=== PATIENT | female | born 1970 | race Two or more races ===

== ENCOUNTER 2020-01-07 10:50 | Outpatient (REF) | payer OTHER, SELFPAY ==
[2020-01-07 11:53] LABS: Hematocrit 37.9 % (37-47); Hemoglobin 11.6 g/dl (12.0-16.0); Mean Corpuscular HGB Conc 30.6 g/dl (31.0-35.0); Mean Corpuscular Hemoglobin 23.7 pg (27.0-33.0); Mean Corpuscular Volume 77.3 fL (80-98); Mean Platelet Volume 11.3 fL (9.4-12.3); Platelet Count 234 X10*3/uL (160-400); Red Cell Distribution Width 16.1 % (11.0-16.0); White Blood Count 6.1 X10*3/uL (4.8-10.8)
[2020-01-07 12:39] LABS: Thyroid Stimulating Hormone 0.51 mIU/mL (0.32-4.0)
== END 2020-01-07 10:51 | disposition home or self-care (01) ==
LOC: HO.LAB 10:50
PROVIDERS: PCP Nurse Practitioner Family; Visit Provider Obstetrics & Gynecology
DX: N92.0 Excessive and frequent menstruation with regular cycle (principal)
CPT/HCPCS: 36415; 84443; 85027

== ENCOUNTER 2020-02-25 17:08 | Outpatient (REF) | payer OTHER, SELFPAY | END 2020-02-25 17:09 | disposition home or self-care (01) | LOC: HO.LAB 17:08 | PROVIDERS: Visit Provider Internal Medicine | DX: Z20.828 Contact with and (suspected) exposure to other viral communicable diseases (principal) | CPT/HCPCS: C9803; U0003 ==

== ENCOUNTER → 2020-03-10 09:37 | Outpatient (BNVA) | payer OTHER, SELFPAY | PROVIDERS: PCP Nurse Practitioner Family; Visit Provider Advanced Practice Midwife | DX: N92.6 Irregular menstruation, unspecified (principal); F17.210 Nicotine dependence, cigarettes, uncomplicated; Z30.09 Encounter for other general counseling and advice on contraception | CPT/HCPCS: 81003; 81025 ==

== ENCOUNTER 2020-05-25 13:44 | Outpatient (REF) | payer OTHER, SELFPAY ==
--- NOTE | ~2020-05-25 | MM_ITS ---
EXAMINATION: MM SCREENING DIGITAL BREAST TOMOSYNTHESIS, BILATERAL CLINICAL INFORMATION: Screening. Asymptomatic. The lifetime risk of breast cancer based on the Tyrer-Cuzick Model is 11.8%. COMPARISON: Mammography: May 20, 2019 and studies dating back to May 13, 2013 TECHNIQUE: Digital breast tomosynthesis is performed in both the craniocaudal and mediolateral oblique views along with computer-aided detection (CAD). Synthesized 2D images are generated from the tomosynthesis. FINDINGS: There are scattered areas of fibroglandular density (ACR BI-RADS breast composition Category b). There are no significant masses, abnormal calcifications, or other abnormalities. MM/MM tomosynthesis screening BI IMPRESSION: There are no significant changes from prior study. ASSESSMENT: BI-RADS 1: Negative RECOMMENDATION: Routine annual mammography screening. This patient's information was entered into a reminder system with a target due date for their next mammogram.
== END 2020-05-25 13:45 | disposition home or self-care (01) ==
LOC: HO.MAMMO 13:44
PROVIDERS: Absent Provider Nurse Practitioner Family; Visit Provider Nurse Practitioner Family
DX: Z12.31 Encounter for screening mammogram for malignant neoplasm of breast (principal)
CPT/HCPCS: 77063; 77067

== ENCOUNTER 2021-11-08 14:48 | Outpatient (REF) | payer SELFPAY ==
--- NOTE | ~2021-11-08 | US_ITS ---
EXAMINATION: US PELVIS CLINICAL INFORMATION: Abnormal bleeding COMPARISON: Previous pelvic ultrasounds most recent November 2019 TECHNIQUE: Ultrasound of the pelvis is performed using both transabdominal and transvaginal transducers along with Doppler. Transvaginal imaging is performed due to inadequate visualization transabdominally. FINDINGS: The uterus is anteverted and slightly enlarged measuring 12.3 x 6.5 x 8.7 cm in. Echotexture is heterogeneous. There are 3 focal uterine lesions measuring 6.1 x 5.3 x 5.2 cm and the left upper uterine body or fundus, 0.9 x 0.6 x 0.9 cm in the posterior uterine body and 0.5 x 0.4 x 0.8 cm in the posterior uterine body questionable for fibroids versus adenomyoma. Endometrial thickness measures 1.3 cm. There is an IUD located in the cervix which appears to be orientated upside down. There are nabothian cysts in the cervix. The right ovary is seen transabdominally only. The right ovary is enlarged and measures 6.3 x 5.9 x 6.4 cm. There is a 5.6 x 5.5 x 6 6 cm right ovarian cyst with daughter cyst. Arterial and venous flow is documented to the right ovary. The left ovary is not seen. There is no fluid in the pelvis. US/US pelvic and transvaginal IMPRESSION: Enlarged heterogeneous with several focal lesions questionable for fibroids versus adenomyomas. Abnormally positioned IUD upside down in the cervix. Large 5.6 x 5.5 x 6.6 cm right ovarian cyst. Findings will be communicated by the [place] work flow lead die molder.
== END 2021-11-08 14:49 | disposition home or self-care (01) ==
LOC: HO.US 14:48
PROVIDERS: Visit Provider Advanced Practice Midwife
DX: N93.9 Abnormal uterine and vaginal bleeding, unspecified (principal); Z30.431 Encounter for routine checking of intrauterine contraceptive device
CPT/HCPCS: 76830; 76856

== ENCOUNTER 2022-07-03 14:28 | Outpatient (REF) | payer OTHER, SELFPAY ==
--- NOTE | ~2022-07-03 | MM_ITS ---
EXAMINATION: MM SCREENING DIGITAL BREAST TOMOSYNTHESIS, BILATERAL CLINICAL INFORMATION: Screening. Asymptomatic. The lifetime risk of breast cancer based on the Tyrer-Cuzick Model is 6.8%. COMPARISON: Mammography: May 25, 2020 and studies dating back to May 13, 2013 TECHNIQUE: Digital breast tomosynthesis is performed in both the craniocaudal and mediolateral oblique views along with computer-aided detection (CAD). Synthesized 2D images are generated from the tomosynthesis. FINDINGS: The breasts are heterogeneously dense, which may obscure small masses (ACR BI-RADS breast composition Category c). There are no significant masses, abnormal calcifications, or other abnormalities. MM/MM tomosynthesis screening BI IMPRESSION: No significant changes from prior exam. ASSESSMENT: BI-RADS 1: Negative RECOMMENDATION: Routine annual mammography screening. This patient's information was entered into a reminder system with a target due date for their next mammogram.
== END 2022-07-03 14:29 | disposition home or self-care (01) ==
LOC: HO.MAMMO 14:28
PROVIDERS: PCP Registered Nurse; Visit Provider Registered Nurse
DX: Z12.31 Encounter for screening mammogram for malignant neoplasm of breast (principal)
CPT/HCPCS: 77063; 77067

== ENCOUNTER 2023-07-17 08:37 | Outpatient (REF) | payer OTHER, SELFPAY ==
[2023-07-17 12:55] LABS: Anion Gap 11 (12-20); Blood Urea Nitrogen 11 mg/dL (9-16); Calcium 9.1 mg/dL (8.4-10.2); Carbon Dioxide 25 mmol/L (22-29); Chloride 107 mmol/L (96-108); Cholesterol 281 mg/dL (<200); Estimated Glomerular Filt Rate > 60; Glucose Random 104 mg/dL (60-115); HDL Cholesterol 61 mg/dL (>40); LDL Cholesterol Calculated 158 mg/dL (<100); Potassium 4.2 mmol/L (3.3-5.1); Sodium 139 mmol/L (135-145); Triglycerides 313 mg/dL (<150)
[2023-07-17 15:42] LABS: Estimated Average Glucose 126 mg/dL
== END 2023-07-17 08:38 | disposition home or self-care (01) ==
LOC: HO.HHCL 08:37
PROVIDERS: Visit Provider Internal Medicine Geriatric Medicine
DX: I10 Essential (primary) hypertension (principal); R73.03 Prediabetes; E78.00 Pure hypercholesterolemia, unspecified; Z72.0 Tobacco use
CPT/HCPCS: 36415; 80048; 80061; 83036

== ENCOUNTER 2023-07-30 15:04 | Outpatient (REF) | payer OTHER, SELFPAY ==
[2023-07-31 08:36] LABS: HIV AB/AG Nonreactive (Nonreactive); HIV Num 1 0.04 S/CO (0.00-0.99); ~HepC Num1 0.12 S/CO (0.00-0.79); ~Hepatitis C Antibody Nonreactive (Nonreactive)
== END 2023-07-30 15:05 | disposition home or self-care (01) ==
LOC: HO.HHCL 15:04
PROVIDERS: Visit Provider Internal Medicine Geriatric Medicine
DX: Z11.59 Encounter for screening for other viral diseases (principal); Z11.4 Encounter for screening for human immunodeficiency virus [HIV]
CPT/HCPCS: 36415; 86803; 87389

== ENCOUNTER 2023-08-09 15:47 | Outpatient (REF) | payer OTHER, SELFPAY | END 2023-08-09 15:48 | disposition home or self-care (01) | LOC: HO.MAMMO 15:47 | PROVIDERS: PCP Internal Medicine Geriatric Medicine; Visit Provider Internal Medicine Geriatric Medicine | DX: Z12.31 Encounter for screening mammogram for malignant neoplasm of breast (principal) | CPT/HCPCS: 77063; 77067 ==

== ENCOUNTER → 2023-08-09 16:15 | Outpatient (BNV) | payer OTHER, SELFPAY | PROVIDERS: PCP Internal Medicine Geriatric Medicine; Visit Provider Radiology Diagnostic Radiology | DX: Z12.31 Encounter for screening mammogram for malignant neoplasm of breast (principal) | CPT/HCPCS: 77063; 77067 ==

== ENCOUNTER 2023-10-08 10:58 | Outpatient (AMB) | payer OTHER, SELFPAY ==
--- NOTE | 2023-10-08 11:00 | A.OFFVIS_ITS ---
Vital Signs 10/08/23 11:10 Height 5 ft 2 in Weight 158 lb 4.67 oz BMI 28.9 BP 130/82 Blood Pressure Location Lt brachial Position Sitting Pulse 66 Pulse Source Pulse Oximeter Pulse Oximetry (%) 99 Oxygen Delivery Method Room Air Intake Visit Reasons: Colonoscopy Screening Intake Note: Lesley presents in office today for a scheduled colo s/p scrn CC; Pt reports that they are here today on their PCPs recommendation based on age. Pt denies any sx or additional concerns that would warrant colo s.p. Pt has no prior hx of colo s/p. 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 female here today for pre colonoscopy screening.? Patient was sent to us by her PCP.? This is her first colonoscopy screening.? Patient denies any gastrointestinal symptoms in the past or at present.? Denies any personal or family history of gastrointestinal disease, colon polyps, or CRC.? Denies history of difficulty with sedation or anesthesia in the past.? Negative for history of sleep apnea.? Denies any history of cardiac, renal, pulmonary, or hepatic disease.?? No history of infectious? diseases like hepatitis A, B, C, HIV or tuberculosis.? Patient is not on any anticoagulation [facility] Medical History Irregular periods Tubal ectopic Hx of ectopic Surgical History History of appendectomy Family History Maternal Aunt Bone cancer Social History Alcohol intake: current Alcohol intake frequency: holidays/special occasions only Cigarettes Per Day: 4 Gender identity: Female Female Reproductive History Menstrual Age of Menarche: 13 Review of Systems Const Denies weight gain and Denies weight loss ENT Reports no additional complaints, Denies dysphagia and Denies odynophagia Card Reports no additional complaints Resp Reports no additional complaints GI Denies abdominal pain, Denies belching, Denies melena, Denies bloating, Denies change in bowel habits, Denies dysphagia, Denies excessive flatus, Denies dyspepsia, Denies heartburn, Denies diarrhea, Denies loose stools, Denies nausea, Denies odynophagia and Denies vomiting Musc Reports no additional complaints Neuro Reports no additional complaints Psych Reports no additional complaints Endo Reports no additional complaints Physical Exam Vital Signs: Last Vital Signs Pulse 66 10/08/23 11:10 BP 130/82 10/08/23 11:10 Pulse Ox 99 10/08/23 11:10 Oxygen Delivery Method Room Air 10/08/23 11:10 BMI result Body Mass Index 28.9 Const General: healthy appearing, no acute distress and well developed Nutritional Appearance: well nourished Orientation/consciousness: patient oriented x3 Resp Effort & Inspection: normal respiratory effort, able to speak in complete sentences, no tracheal deviation and symmetric chest movement Auscultation: clear to auscultation bilaterally Cardio Rate: regular rate GI Inspection: Yes normal to inspection and No distended Palpation (GI): Soft to palpation, not firm, nontender and No hepatosplenomegaly present Auscultation: normal bowel sounds General: Yes no CVA tenderness Back/Spine/Pelvis Back: no CVA tenderness Skin General skin exam: elasticity normal, turgor normal and dry skin Neuro General: patient oriented x3 Psych Appearance: grossly normal Mental Status: mental status grossly normal Assessment & Plan Assessment & Plan (1) Screen for colon cancer: Code(s): Z12.11 - Encounter for screening for malignant neoplasm of colon Plan Patient denies any GI, cardiac or respiratory symptoms.? Denies any issues with anesthesia in the past.? Denies any history of sleep apnea.? No history infectious diseases in the past or present.? Not on any anticoagulation therapy.? No family or personal history of colon cancer or polyps.? Patient denies melena, hematochezia, unintentional weight loss or ribbon like stools.? Discussed at length the pre-procedure,? prep, diet & medications as well as what to expect prior, during and after the procedure.?? Stressed the importance of good bowel prep.? Recommended the use of Vaseline or Calmoseptine OTC & baby wipes with bowel movements to promote comfort.? ?Patient verbalizes understanding and agrees to plan of care.? She was given the opportunity to ask questions and all questions answered.? We will see her after the procedure.? Medications: New bisacodyl (Dulcolax (bisacodyl)) take 4 tabs at noon the day before your colonoscopy 20 mg (4 x 5 mg) PO ONCE 1 day 4 tabs 0RF Z12.11 - Encounter for screening for malignant neoplasm of colon polyethylene glycol 3350 (Miralax) As directed by gastroenterology department at [facility] 238 grams PO ONCE 238 grams 0RF Z12.11 - Encounter for screening for malignant neoplasm of colon Coding Level of Care Code New Pt Level 3 (13074) Diagnoses Screen for colon cancer Z12.11 Time Spent (min) 40 Comment 30 minutes spent with patient and additional 10 minutes spent reviewing her records
[2023-10-08 11:10] VITALS: BP 130/82; PULSE 66; O2SAT 99; BMI 28.9
== END 2023-10-08 12:41 | disposition home or self-care (01) ==
PROVIDERS: PCP Internal Medicine Geriatric Medicine; Visit Provider Nurse Practitioner Family
DX: Z12.11 Encounter for screening for malignant neoplasm of colon (principal); Z01.818 Encounter for other preprocedural examination
CPT/HCPCS: 99203

== ENCOUNTER → 2023-10-08 10:58 | Outpatient (BNVA) | payer OTHER, SELFPAY | PROVIDERS: PCP Internal Medicine Geriatric Medicine; Visit Provider Nurse Practitioner Family | DX: Z12.11 Encounter for screening for malignant neoplasm of colon (principal) | CPT/HCPCS: 99202 ==

== ENCOUNTER 2024-03-06 06:46 | Day surgery (SDC) | payer OTHER, SELFPAY ==
[2024-03-04 13:25] VITALS: BMI 28.9
--- NOTE | 2024-03-06 06:58 | MHC.SHP ---
Pre-Procedural Eval Section A - 24 Hr Update-Section A only Date of Service: 03/06/24 Section B - Complete if H&P > 30 days Chief Complaint: screening Relevant Family History (Specify if Yes): No Relevant Social History: None Present Medications: see Short Stay Collaborative assessment Medical History: Significant History (Irregular periods Tubal ectopic Hx of ectopic ) History of Previous Operations: Relevant previous surgery/procedure and date(s) (History of appendectomy) Allergies: Allergies Allergy/AdvReac Type Severity Reaction Status Date / Time acetaminophen [Percocet] Allergy Unknown shortness Verified 10/08/23 11:04 of breath oxycodone [Percocet] Allergy Unknown shortness Verified 10/08/23 11:04 of breath Review of Systems Sugical H&P ROS: Negative: Constitution, Cardiovascular, Respiratory, Neurological, Psychiatric, Hem-Onc, Allergic/Immunologic, Gastrointestinal, Genitourinary, Musculoskeletal, Integumentary, Endocrine and Eyes/Ears/Nose/Throat Exam Surgical H&P Exam: Normal: HEENT, Normal: Heart, Normal: Lungs, Normal: Extremities, Normal: Abdomen, Normal: Skin and Normal: Neurological Plan Diagnosis/Plan: Unchanged I have reviewed the history and physical and performed a pertinent physical examination on my patient. No changes have occurred unless specified. Time Spent With Patient Time: Total time managing care of this patient today ____ minutes.
[2024-03-06 07:17] VITALS: BMI 28.5
[2024-03-06 07:22] LABS: UPreg QC Valid YES; Urine Pregnancy NEGATIVE (NEGATIVE)
[2024-03-06] MEDS: Lactated Ringers 1,000 ML 100 ML IVCONT (07:31)
[2024-03-06 07:34] VITALS: BP 133/74; PULSE 75; RESP 18; TEMP 36.7; O2SAT 99
--- NOTE | 2024-03-06 08:00 | HO.ANESPROP2 ---
Documented by User: Jenniffer Gonzalez NP 03/05/24 09:04 HPI - Anesthesia Eval Consult details Narrative: 54yo F for Colonoscopy PMFSH Active Problems Active Problems: All Active Problems control counseling (Acute) Irregular menses (Acute) Menorrhagia (Acute) Past Medical History Medical History Irregular periods Tubal ectopic Hx of ectopic Family History Family History Maternal Aunt Bone cancer Surgical History Surgical History History of appendectomy Social History Social History Are you a primary wound care nurse to a significant other at home: No Do you presently have visiting nurse or other home services: No Alcohol intake: current Alcohol intake frequency: holidays/special occasions only Patient Tobacco Use Status: Former Tobacco user Cigarettes Per Day: 4 Have you been hit, kicked, punched, or otherwise hurt by someone within the past year? If so, by whom?: No Are you DNR?: No Advance Directives: No Advance Directives Information Provided: Yes Recently lost weight without trying: No Nutrition Risks: No Nutritional Risk FDLMP: january 2024 Gender identity: Female Meds Allergies Allergy/AdvReac Type Severity Reaction Status Date / Time acetaminophen [Percocet] Allergy Unknown shortness Verified 10/08/23 11:04 of breath oxycodone [Percocet] Allergy Unknown shortness Verified 10/08/23 11:04 of breath Home Medications ?Medication ?Instructions ?Recorded ?Confirmed ?Last Taken ?Type fluconazole 150 mg tablet 150 mg PO ONCE 01/22/20 Unknown History fluticasone propionate 50 intranasal 01/22/20 Unknown History mcg/actuation nasal spray,suspension multivitamin (Daily Multi-Vitamin 1 tab PO DAILY 03/10/20 Unknown History tablet) losartan 25 mg tablet 25 mg PO DAILY 10/08/23 Unknown History Exam Height,Weight and Vital Signs: Height 5 ft 2 in Weight 71.668 kg Assessment and Plan Assessment Anesthesia Assessment: Chart Reviewed Documented by User: Maddie Jorgensen DO 03/06/24 08:03 HPI - Anesthesia Eval Consult details Narrative: 54yo F for Colonoscopy. HTN on losartan daily. [facility] Past Medical History Medical History Irregular periods Tubal ectopic Hx of ectopic Family History Family History Maternal Aunt Bone cancer Family history of problems with anesthesia: No Surgical History Surgical History History of appendectomy History of Problems with Anesthesia: No Social History Social History Are you a primary wound care nurse to a significant other at home: No Do you presently have visiting nurse or other home services: No Alcohol intake: current Alcohol intake frequency: holidays/special occasions only Patient Tobacco Use Status: Former Tobacco user Cigarettes Per Day: 4 Have you been hit, kicked, punched, or otherwise hurt by someone within the past year? If so, by whom?: No Are you DNR?: No Advance Directives: No Advance Directives Information Provided: Yes Recently lost weight without trying: No Nutrition Risks: No Nutritional Risk FDP: january 2024 Gender identity: Female Meds Allergies Allergy/AdvReac Type Severity Reaction Status Date / Time acetaminophen [Percocet] Allergy Unknown shortness Verified 10/08/23 11:04 of breath oxycodone [Percocet] Allergy Unknown shortness Verified 10/08/23 11:04 of breath Home Medications ?Medication ?Instructions ?Recorded ?Confirmed ?Last Taken ?Type fluconazole 150 mg tablet 150 mg PO ONCE 01/22/20 Unknown History fluticasone propionate 50 intranasal 01/22/20 Unknown History mcg/actuation nasal spray,suspension multivitamin (Daily Multi-Vitamin 1 tab PO DAILY 03/10/20 Unknown History tablet) losartan 25 mg tablet 25 mg PO DAILY 10/08/23 Unknown History Exam Exam Date and Time: 03/06/24 0800 Height,Weight and Vital Signs: Height 5 ft 2 in Weight 71.668 kg Vital Signs Temperature 98.0 F 03/06/24 07:34 Pulse Rate 75 03/06/24 07:34 Respiratory Rate 18 03/06/24 07:34 Blood Pressure 133/74 03/06/24 07:34 Pulse Oximetry 99 03/06/24 07:34 Oxygen Delivery Method Room Air 03/06/24 07:34 Temperature 98.0 F 03/06/24 07:34 Pulse Rate 75 03/06/24 07:34 Respiratory Rate 18 03/06/24 07:34 Blood Pressure 133/74 03/06/24 07:34 Pulse Oximetry 99 03/06/24 07:34 Oxygen Delivery Method Room Air 03/06/24 07:34 Airway Mallampati Class: II TM Dist: >3cm Neck ROM: Full Loose/Missing/Broken Teeth: Yes (patient reports several broken molars on both the left and right sides) Heart: S1S2 Lungs: CTAB Assessment and Plan Assessment Anesthesia Assessment: Anesthesia Plan Discussed and Chart Reviewed Final Anesthetic Review Family History of Problems with Anesthesia: No History of Problems with Anesthesia: No NPO: Yes ASA Class: II Final Preanesthetic Review: No Changes in Pt Med Stat, Meds/Allgs Chart Reviewed, Consent Obtained/Reviewed and Anes Risks/Benef Reviewed Patient Risk: Low Procedure Risk: Low Anesthetic Plan Anesthetic Plan: MAC: and Agree w/ Assess. and Plan Disposition: Standard PACU
--- NOTE | 2024-03-06 09:07 | HO.OPN-COLON ---
Colonoscopy Operative Note Operative Note Date of Service: 03/06/24 Narrative: Operative Information Procedure Description: Colonoscopy Indication: screening Anesthesia: MAC COLONOSCOPY Instrument: Olympus variable stiffness pediatric scope 190L Colonoscopy Monitoring: Vital signs and clinical assessment, continuous EKG monitoring, Pulse oximetry, Carbon Dioxide monitoring and blood pressure monitoring were done throughout the procedure. Colon withdrawal time was 8 minutes. Procedure: The patient was placed in the left lateral decubitis position and pre-procedure medications were administered. After a digital rectal examination of the ano-rectum, the video colonoscope was inserted into the rectum and advanced through the colon to the cecum/TI. The colonoscope was slowly withdrawn in a retrograde panoramic fashion and the colon mucosa was carefully examined including a retroflexed view of the rectum. Findings and interventions are described below. Procedure Difficulty: moderate Findings: Terminal Ileum-normal Cecum:normal Ascending Colon: moderate diverticulosis Transverse Colon -normal Descending Colon:normal Sigmoid Colon: severe diverticulosis with tight angles and luminal narrowing Rectum: Retroflexion with small internal hemorrhoids seen, grade I Anorectum - normal Intervention: none Colon preparation: [place] Bowel Preparation Scale Right colon; 3 Transverse colon: 2 Left colon; 2 (0 = Unprepared colon segment with mucosa not seen due to solid stool that cannot be cleared. 1 = Portion of mucosa of the colon segment seen, but other areas of the colon segment not well seen due to staining, residual stool and/or opaque liquid. 2 = Minor amount of residual staining, small fragments of stool and/or opaque liquid, but mucosa of colon segment seen well. 3 = Entire mucosa of colon segment seen well with no residual staining, small fragments of stool or opaque liquid) Impression and Post Procedure Diagnosis: diverticulosis-severe internal hemorrhoids Plan: High fiber diet leaflet Avoid straining at stool, epsom salts and sitz bath, anusol supps or cream Repeat Colonoscopy in 10 years or earlier if clinically indicated Above findings were reviewed with the patient and relevant handouts were provided if indicated.
[2024-03-06 09:15] VITALS: BP 96/57; PULSE 82; RESP 16; TEMP 36.2; O2SAT 96
[2024-03-06 09:27] VITALS: BP 109/62; PULSE 83; RESP 16; TEMP 36.1; O2SAT 99
== END 2024-03-06 09:49 | disposition home or self-care (01) ==
PROVIDERS: Anesthesiology; PCP Internal Medicine Geriatric Medicine; Visit Provider Internal Medicine Gastroenterology
PROC: 0DJD8ZZ Inspection of Lower Intestinal Tract, Via Natural or Artificial Opening Endoscopic (ICD-10-PCS; CPT 45378; principal; 2024-03-06 08:20)
DX: Z12.11 Encounter for screening for malignant neoplasm of colon (principal); K57.30 Diverticulosis of large intestine without perforation or abscess without bleeding; K64.0 First degree hemorrhoids; I10 Essential (primary) hypertension; N92.6 Irregular menstruation, unspecified; Z79.899 Other long term (current) drug therapy; Z88.5 Allergy status to narcotic agent; Z90.49 Acquired absence of other specified parts of digestive tract; Z87.891 Personal history of nicotine dependence
CPT/HCPCS: 45378; 81025; J2003; J2250; J2704

== ENCOUNTER → 2024-03-06 06:46 | Outpatient (BNV) | payer OTHER, SELFPAY | PROVIDERS: PCP Internal Medicine Geriatric Medicine; Visit Provider Internal Medicine Gastroenterology | DX: Z12.11 Encounter for screening for malignant neoplasm of colon (principal); K57.90 Diverticulosis of intestine, part unspecified, without perforation or abscess without bleeding; K64.0 First degree hemorrhoids | CPT/HCPCS: 45378 ==

== ENCOUNTER 2024-06-03 13:51 | Outpatient (REF) | payer OTHER, SELFPAY ==
[2024-06-04 04:00] LABS: CT PCR NOT DETECTED (Not Detect.); NG PCR NOT DETECTED (Not Detect.)
[2024-06-04 08:35] LABS: HBS Num1 0.62 mIU/mL (0-7.99); HBc Num1 0.08 S/CO (0.00-0.79); HBsAGNum1 0.25 S/CO (0.00-0.99); HIV AB/AG Nonreactive (Nonreactive); HIV Num 1 0.05 S/CO (0.00-0.99); Hepatitis B Core Antibody Nonreactive (Nonreactive); Hepatitis B Surface Antigen Negative (Negative); ~HepC Num1 0.11 S/CO (0.00-0.79); ~Hepatitis B Surface Antibody NONREACTIVE (Nonreactive); ~Hepatitis C Antibody Nonreactive (Nonreactive)
[2024-06-04 08:56] LABS: Syphilis Screen Nonreactive (Nonreactive)
[2024-06-04 11:15] LABS: Bacterial Vaginosis PCR POSITIVE (Negative); Candida Group PCR NOT DETECTED (Not Detect); Candida glab krusei PCR NOT DETECTED (Not Detect); Trichomonas vaginalis PCR NOT DETECTED (Not Detect)
== END 2024-06-03 13:52 | disposition home or self-care (01) ==
LOC: HO.HHCL 13:51
PROVIDERS: Visit Provider Advanced Practice Midwife
DX: Z11.3 Encounter for screening for infections with a predominantly sexual mode of transmission (principal); Z11.4 Encounter for screening for human immunodeficiency virus [HIV]
CPT/HCPCS: 81515; 86704; 86706; 86780; 86803; 87340; 87389; 87491; 87591

== ENCOUNTER 2024-06-19 15:13 | Outpatient (REF) | payer OTHER, SELFPAY ==
--- NOTE | ~2024-06-19 | US_ITS ---
EXAMINATION: US PELVIS TRANSABDOMINAL AND TRANSVAGINAL HISTORY: f/u fibroid and right ovarian cyst COMPARISON: Comparison is made with the prior examination dated 11/08/2021. TECHNIQUE: Transabdominal and endovaginal real-time 2D colnidres-scale ultrasound was performed. FINDINGS: Uterus: The uterus is normal in size, measuring 7.1 x 5.0 x 6.2 cm. Myometrium has a normal echotexture. Again seen are multiple fibroids including a posterior fibroid measuring 1.8 x 1.6 x 2.0 cm, which was not seen previously, a 1.1 x 1.1 x 1.1 cm anterior fibroid which previously measured 0.9 x 0.6 x 0.9 cm, and a 1.0 x 0.8 x 0.8 cm posterior fibroid, previously measuring 0.5 x 0.4 x 0.8 cm. Endometrium: The endometrial stripe measures 5 mm in thickness. There are nabothian cysts in the cervix. Right ovary: The right ovary is not identified. Left ovary: The left ovary measures 2.0 x 1.6 x 2.1 cm. The left ovary is normal in size and echotexture. Pelvic fluid: none. US/US pelvic and transvaginal IMPRESSION: Fibroid uterus as described. The right ovary is not identified. The left ovary is unremarkable. Electronically signed by: Ridge Hay MD 06/19/2024 03:56 PM EDT
--- OUTSIDE RECORDS SUMMARY | 2024-06-19 16:39 | XMS_ITS | Encounter Summary ---
Author Organization [employer] [facility] Address [address] [facility] [address] [place] [address] Care Team Providers Care Installer Interior Assemblies Name Role Phone Name, Sukhdeep [place] Primary Care Provider [phone] Encounter Details Date Type Department Care Team (Late Contact Info) Description 09/05/2022 Abstract [facility] ADULT DENTAL [address] [place], [place] [phone] Cordelia Uriarte [address] [place] [address] Social History Tobacco Use Types Packs/Day Years Used Date Smoking Tobacco: Some Days Cigarettes Smokeless Tobacco: Never Alcohol Use Standard Drinks/Week Comments Not Currently 0 (1 standard drink = 0.6 oz pur e alcohol) Depression Answer Date Recorded Patient Health Questionnaire-9 Score 0 07/11/2022 Depression Answer Date Recorded Patient Health Questionnaire-2 Score 0 07/11/2022 Comments No Sex and Gender Information Value Date Recorded Sex Assigned at Female 01/16/2022 10:15 AM EDT Legal Sex Female 10:15 AM EDT Gender Identity Female 01/16/2022 10:15 AM EDT Sexual Orientation Straight 01/16/2022 10 :15 AM EDT documented as of this encounter Plan of Treatment Upcoming Encounters Date Type Department Care Team (Late Contact Info) Description 07/03/2024 2:00 PM EDT Immunization [facility] MEDICINE [address] [place] [address] [phone] 08/12/2024 2:45 PM EDT Office Visit [facility] MEDICINE [address] [place] [address] [phone] Name, MD Sukhdeep [address] [place] [address] 11/21/2024 8:00 AM EDT Office Visit [facility] ADULT DENTAL [address] [place] [address] Cordelia Uriarte [address] [place] [address] documented as of this encounter Visit Diagnoses Not on filedocumented in this encounter Additional Health Concerns Assessment Noted Time PHQ-9 Depression Total Score: 0 07/12/19 9:22 AM EDT documented as of this encounter Care Teams Installer Interior Assemblies Relationship Specialty Start Date End Date Name, MD Sukhdeep [address] [place] [address] PCP - General Internal Medicine 06/02/22 documented as of this encounter
--- OUTSIDE RECORDS SUMMARY | 2024-06-19 16:39 | XMS_ITS | Encounter Summary ---
Author Organization [employer] Address [address] [facility] [address] [place] [address] Care Team Providers Care Seat Pack Inspector Name Role Phone Name, Sukhdeep [place] Primary Care Provider [phone] Reason for Visit * Reason Comments Med Refill Encounter Details Date Type Department Care Team (Late st Contact Info) Description 05/28/[address] [facility] [address] [place] [address] [phone] Grabiel Smith MD [address] [place], [place] [phone] Social History Tobacco Use Types Packs/Day Years Used Date Smoking Tobacco: Some Days Cigarettes Smokeless Tobacco: Never Alcohol Use Standard Drinks/Week Comments Yes 0 (1 standard drink = 0.6 oz pur e alcohol) occassional Depression Answer Date Recorded Patient Health Questionnaire-9 Score 0 07/11/2022 Housing Stability Answer Date Recorded What is your housing situation today? I have je aguirre 01/15/[address] you li ve. Do you have problems with any of the following? None of the above 01/15/2023 Food Insecurity Answer Date Recorded Within the past 12 months, y ou worried that your food would run out before you got money to buy more: Sometimes True 2022 Within the past 12 months,th e food you bought just didn't last and you didn't have enough money to get more: Sometimes True 01/15/2023 Transportation Answer Date Recorded In the past 12 months, has l ack of transportation kept you from medical appts, meetings, work or from getting things needed for daily living? No 01/15/2023 Utilities Answer Date Recorded In the past 12 months, has t he electric, gas, oil or water company threatened to shut off services in your home? No 01/15/2023 Depression Answer Date Recorded Patient Health Questionnaire-2 [...] Encounters Date Type Department Care Team (Late st Contact Info) Description 07/03/2024 2:00 PM EDT Immunization [facility] MED[facility]INE [address] [place] [phone] 08/12/2024 2:45 PM EDT Office Visit [facility] MED[facility] [address] [place] [phone] Name, MD Sukhdeep [address] [place] [address] 11/21/2024 8:00 AM EDT Office Visit [facility] ADULT DENTAL [address] [place] [address] Kalani, Cordelia [address] [place] [address] documented as of this encounter Visit Diagnoses Not on filedocumented in this encounter Additional Health Concerns Assessment Noted Time PHQ-9 Depression Total Score: 0 07/12/19 23 9:22 AM EDT documented as of this encounter Care Teams Seat Pack Inspector Relationship Specialty Start Date End Date Name, MD Sukhdeep [address] [place] [phone] PCP - General Internal Medicine 06/02/22 documented as of this encounter
--- OUTSIDE RECORDS SUMMARY | 2024-06-19 16:39 | XMS_ITS | Encounter Summary ---
Author Organization [facility] Address [address] [place] [address] Care Team Providers Care Tester Waste Disposal Leakage Name Role Phone Monica Chavez Primary Care Provider Sukhdeep Paul MD Primary Care Provider [phone] Encounter Details Date Type Department Care Team (Latest Contact Info) Description 04/05/2021 Abstract [facility] CONVERSIONS Dental, Provider, DDS Social History Tobacco Use Types Packs/Day Years Used Date Smoking Tobacco: Never Assessed Comments Unknown Sex and Gender Information Value Date Recorded Sex Assigned at Female 01/16/2022 10:15 AM EDT Legal Sex Female 10:15 AM EDT Gender Identity Female 01/16/2022 10:15 AM EDT Sexual Orientation Straight 01/16/2022 10 :15 AM EDT documented as of this encounter Plan of Treatment Upcoming Encounters Date Type Department Care Team (Late st Contact Info) Description 07/03/2024 2:00 PM EDT Immunization [facility] MEDICINE [address] [place] [id number] 08/12/2024 2:45 PM EDT Office Visit [facility] MEDICINE [address] [place] [id number] NameSukhdeep MD [address] [place] [address] 11/21/2024 8:00 AM EDT Office Visit [facility] ADULT DENTAL [address] [place] [address] Cordelia Uriarte [address] [place] [address] documented as of this encounter Visit Diagnoses Not on filedocumented in this encounter Care Teams Tester Waste Disposal Leakage Relationship Specialty Start Date End Date Monica Chavez FNP [address] [place] [address] PCP - General Family Medicine 11/08/21 06/01/22 Name, MD Sukhdeep [address] [place] [address] PCP - General Internal Medicine 06/02/22 documented as of this encounter
--- OUTSIDE RECORDS SUMMARY | 2024-06-19 16:39 | XMS_ITS | Clinical Summary ---
Author Organization [employer] Address [address] [facility] [address] [place] [address] Care Team Providers Care Electrical Continuity Tester Name Role Phone Name, Sukhdeep AUSTIN Primary Care Provider [phone] Allergies Active Allergy Reactions Criticality Noted Date Comments Oxycodone Swelling Oxycodone-Acetaminophen Rash Low 07/17/2022 throat swelling Varicella Virus Vaccine Live 05/15/2012 Other reaction(s): LOCAL REACTION, RED RAISED ITCHY Medications Spacer/Aero-Hol ding Chambers (OptiChamber Molly) miscIndications :Influenza-like symptoms 1 each every 4 (four) hours if needed (asthma). 1 each 05/30/19 23 Active EPINEPHrine (Epipen) 0.3 MG/0.3ML injection syringeIndicati ons:H/O allergic reaction Inject 0.3 mL (0.3 mg) as directed 1 (one) time if needed for anaphylaxis. Inject into upper leg. Call 911 after use. 2 each 05/30/19 23 Active nicotine (Nicoderm CQ) 14 MG/24HR patch Place 1 patch on the skin 1 (one) time each day at the same time. 42 patch 05/25/19 24 Active nicotine (Nicoderm CQ) 7 MG/24HR patch Place 1 patch on the skin 1 (one) time each day at the same time. 14 patch 05/25/19 24 Active nicotine polacrilex (Commit) 2 MG lozenge Dissolve 1 lozenge (2 mg) in the mouth if needed for smoking cessation. 100 lozenge 05/25/19 24 Active montelukast (Singulair) 10 MG tablet Take 1 tablet (10 mg) by mouth in the morning. 30 tablet 5 06/26/19 24 Active Additional Information Patient not taking.Reported on 10/24/2023 albuterol 108 (90 Base) MCG/ACT inhalerIndicati ons:Mild intermittent asthma with acute exacerbation Inhale 2 puffs every 4 (four) hours if needed for wheezing or shortness of breath. 18 g 3 06/26/19 24 2024 Active famotidine (Pepcid) 20 MG tablet Take 1 tablet by mouth every 12 (twelve) hours. Active fluticasone (Flonase Allergy Relief) 50 MCG/ACT nasal sprayIndication s:Nasal congestion Administer 1 spray into each nostril Once per day. Shake gently. Before first use, prime pump. After use, clean tip and replace cap. 16 g 12 01/16/20 24 2024 Active losartan (Cozaar) 25 MG tabletIndicatio ns:Hypertension , unspecified type TAKE 1 TABLET BY MOUTH EVERY DAY 90 tablet 1 06/17/19 25 Active losartan (Cozaar) 25 MG tabletIndicatio ns:Hypertension , unspecified type TAKE 1 TABLET BY MOUTH EVERY DAY 90 tablet 1 12/13/19 24 2024 Discontinued metroNIDAZOLE (Metrogel) 0.75 % vaginal gel Insert 1 Application. into the vagina at bedtime for 5 doses. One applicator in the vagina every night x 5 nights 70 g 06/05/19 25 2024 Discontinued(A lternate therapy) metroNIDAZOLE (Flagyl) 500 MG tablet Take 1 tablet (500 mg) by mouth 2 times daily for 7 days. 14 tablet 06/05/19 25 2024 Active Problems Problem Noted Date Diagnosed Date Dental caries 01/22/2024 Gingival bleeding 11/13/2023 Tobacco dependence 05/25/2023 Hypertension 04/10/2023 Periodontal disease 07/28/2022 Dental calculus 07/28/2022 Localized gingival recession 07/28/2022 Prediabetes 07/27/2022 Menorrhagia 07/11/2022 Metrorrhagia 07/11/2022 Anxiety 02/01/2012 Gastroesophageal reflux disease 09/14/2011 Encounters Date Type Department Care Team Description 06/16/2024 Refill [facility] [place] [address] Sukhdeep Paul MD Hypertension, unspecified type 06/05/2024 1:[address] [facility] [place] [address] Sweta Joyner, RN Encounter for immunization 06/05/[address] [facility] [place] [address] Sukhdeep Paul MD Medication Question 06/05/2024 Travel 06/04/[address] [facility] [place] [address] Pham Kwan CNM 06/04/[address] [place] [place] [address] Pham Kwan CNM Results 06/04/[address] [place] [place] [address] Pham Kwan CNM 06/03/2024 1:15 PM EDT Office Visit [facility] [place] [address] Pham Kwan CNM Visit for pelvic exam (Primary Dx); Fibroid; Right ovarian cyst; Screening examination for venereal disease; Perimenopause 06/03/2024 Travel 05/20/2024 10:00 AM EST Office [facility] [place] [address] KalaniCordelia Dental calculus (Primary Dx); Periodontal disease 05/13/[address] [place] [place] [address] Sukhdeep Paul MD May recall from Last 3 Months Immunizations Name Administration Dates Next Due Hep A, Adult 11/25/2012,05/02/2012 Hep B, adult 06/05/2024,01/28/2013,11/25/2012 Influenza injectable quadriv alent IIV4 with preservative 02/22/2015 Influenza injectable quadriv alent preservative free 12/23/2018,04/06/2016 Influenza, IIV3, injectable 02/11/2014,1 03/28/2010,01/20/2010,2008 Influenza, Split (incl. mino fied surface antigen) 11/25/2012,02/01/2012 Pneumococcal Conjugate PCV 20 04/10/2023 Tdap 04/10/2023,02/01/2012 Varicella 01/28/2013,05/02/2012 Social History Tobacco Use Types Packs/Day Years Used Date Smoking Tobacco: Former Cigarettes Q uit: 10/15/2023 Smokeless Tobacco: Never Tobacco Cessation:Counseling Given: Not Answered Alcohol Use Standard Drinks/Week Comments Not Currently 5 (1 standard drink = 0.6 oz pur e alcohol) occassional Alcohol Answer Date Recorded How often do you have a drink containing alcohol ? 4 10/25/2023 How many drinks containing a lcohol do you have on a typical day when you are drinking? 0 10/25/2023 How often do you have six or more drinks on one occasion? 1 10/25/2023 Depression Answer Date Recorded Patient Health Questionnaire-9 Score 0 07/30/2023 Patient Health Questionnaire-9 Score 0 07/30/2023 Last PHQ-9: Questionnaire Data Not on file 0 07/30/2023 Housing Stability Answer Date Recorded What is your housing situation today? I have je aguirre 07/19/[address] you li ve. Do you have problems with any of the following? None of the above 07/19/2023 Food Insecurity Answer Date Recorded Within the past 12 months, y ou worried that your food would run out before you got money to buy more: Never True 07/19/2023 Within the past 12 months,th e food you bought just didn't last and you didn't have enough money to get more: Never True 04/2023 Transportation Answer Date Recorded In the past 12 months, has l ack of transportation kept you from medical appts, meetings, work or from getting things needed for daily living? No 07/19/2023 Utilities Answer Date Recorded In the past 12 months, has t he electric, gas, oil or water company threatened to shut off services in your home? No 07/19/2023 Depression Answer Date Recorded Patient Health Questionnaire-2 Score 0 07/30/2023 Comments No Sex and Gender Information Value Date Recorded Sex Assigned at Female 01/16/2022 10:15 AM EDT Legal Sex Female 10:15 AM EDT Gender Identity Female 01/16/2022 10:15 AM EDT Sexual Orientation Straight 01/16/2022 10 :15 AM EDT Last Filed Vital Signs Vital Sign Reading Time Taken Comments Blood Pressure 149/88 06/03/2024 1:14 PM EDT Pulse 77 06/03/2024 1:14 PM EDT Temperature 36.4 ??C (97.6 ??F) 06/03/2024 1:14 PM ED T Respiratory Rate 16 06/03/2024 1:14 PM EDT Oxygen Saturation 98% 06/03/2024 1:14 PM EDT Inhaled Oxygen Concentration - - Weight 74.1 kg (163 lb 6.4 oz) 06/03/2024 1:14 P M EDT Height 157.5 cm (5' 2 ) 06/03/2024 1:14 PM EDT Body Mass Index 29.89 06/03/2024 1:14 PM EDT Plan of Treatment Upcoming Encounters Date Type Department Care Team (Late st Contact Info) Description 07/03/2024 2:[address] [facility] [address] [place] [phone] 08/12/2024 2:45 PM EDT Office Visit [facility] [address] [place] [phone] Name, MD Sukhdeep [address] [place] [address] 11/21/2024 8:00 AM EDT Office Visit [facility] [address] [place] [phone] Cordelia Uriarte [address] [place] [address] Health Maintenance Due Date Last Done Comments CT Colonography 1972 FIT DNA/Cologuard 1970 FIT 1970 FOBT 1970 Sigmoidoscopy 1970 Family Planning (PISQ) 02/19/1987 Zoster Vaccines (1 of 2) 02/19/2022 COVID-19 Vaccine ( season) 2023 03/29/2021, 04/22/2020, 03/25/2020 Influenza Vaccine (#1) 2023 9, 04/06/2016, 02/22/2015, Additional history exists Dental Oral Exam 05/16/2024 11/13/2023, 07/28/2022 Diabetes: Hemoglobin A1C 07/16/2024 024, 07/11/2022, 09/07/2020 SDOH Screening 07/18/2024 07/19/2023 Depression Screening 07/29/2024 07/30/2023, 07/30/19 Mammogram 08/08/2024 08/09/2023, 06/17, 07/03/2022, Additional history exists Alcohol/Substance Use Screening 10/23/2024 10/24/2023 Dental X-Ray: Bitewings 11/13/2024 11/13/2023, 07/28 Dental Prophylaxis 11/21/2024 05/20/2024, 0 11/13/2023, 07/28/2022 Tobacco Screening 06/03/2025 06/03/2024 Dental X-Ray: Full Mouth 07/29/2025 07/28/2022 Cervical Cancer Screening 11/16/2026 HPV/Cotest 11/16/2026 11/16/2021 Pap Smear 11/16/2026 11/16/2021 Lipid Panel 07/16/2028 07/17/2023, 06/18, 09/07/2020 DTaP/Tdap/Td Vaccines (3 - Td or Tdap) 04/10/2033 04/10/2023, 02/01/2012 Colonoscopy 03/06/2034 03/06/2024 Colorectal Cancer Screening 03/06/2034 RSV Patients and Patients Aged 60 years or older (1 - 1-dose 75+ series) 02/19/2047 Hepatitis A Vaccines Aged Out 11/25/2012, 05/02/19 13 No longer eligible based on patient's age to complete this topic Pneumococcal Vaccine: 50+ Years Completed 04/10/2023 HIV Screening Completed 06/03/2024, 07/30/2023 Hepatitis C Screening Completed 06/03/2024, 024 Hepatitis B Vaccines Completed 06/05/2024, 01/28/2013, 11/25/2012 HIB Vaccines Aged Out No longer eligi ble based on patient's age to complete this topic HPV Vaccines Aged Out No longer eligi ble based on patient's age to complete this topic IPV Vaccines Aged Out No longer eligi ble based on patient's age to complete this topic Meningococcal Vaccine Aged Out No monae rolan eligible based on patient's age to complete this topic RSV under 20 months Aged Out No longe r eligible based on patient's age to complete this topic Rotavirus Vaccines Aged Out No longer eligible based on patient's age to complete this topic Procedures Procedure Name Priority Date/Time Associated Diagnosis Comments US PELVIS TRANSVAGINAL Urgent 3:16 PM EDT Fibroid Right ovarian cyst SYPHILIS SCREEN Routine 06/03/2024 1:53 PM EDT Screening examination for venereal disease HIV 1/2 ANTIGEN/ANTIBODY, FOURTH GENERATION W/RFL Routine 06/03/2024 1:53 PM EDT Screening examination for venereal disease HEPATITIS C AB W/REFL TO HCV RNA, QN, PCR Routine 06/03/2024 1:53 PM EDT Screening examination for venereal disease HEPATITIS B SURFACE ANTIBODY, QUALITATIVE Routine 06/03/2024 1:53 PM EDT Screening examination for venereal disease HEPATITIS B SURFACE ANTIGEN, EIA Routine 06/03/2024 1:53 PM EDT Screening examination for venereal disease HEPATITIS B CORE AB TOTAL Routine 06/03/2024 1:53 PM EDT Screening examination for venereal disease CHLAMYDIA/N. GONORRHOEAE RNA, TMA, UROGENITAL Routine 06/03/2024 1:53 PM EDT Screening examination for venereal disease BACTERIAL VAGINOSIS PANEL Routine 06/03/2024 1:37 PM EDT ORAL HYGIENE INSTRUCTIONS Routine 05/20/2024 10:00 AM EST Dental calculus Periodontal disease PROPHYLAXIS - ADULT Routine 05/20/2024 1 0:00 AM EST Dental calculus Periodontal disease HM COLONOSCOPY Routine 03/06/2024 9:11 AM EST BITEWINGS - 4 RADIOGRAPHIC IMAGES Routine 11/13/2023 9:00 AM EDT Dental calculus Periodontal disease Localized gingival recession Gingival bleeding PERIODIC ORAL EVALUATION - ESTABLISHED PATIENT Routine 11/13/2023 9:00 AM EDT BI MAMMOGRAM SCREENING TOMOSYNTHESIS BILATERAL Routine 08/09/2023 4:03 PM EDT LIPID PANEL, STANDARD Routine 07/17/2023 9:45 AM EDT Prediabetes Hypertension, unspecified type High cholesterol Tobacco use HEMOGLOBIN A1C Routine 07/17/2023 8:38 AM EDT Prediabetes Hypertension, unspecified type High cholesterol Tobacco use INTRAORAL - COMPLETE SERIES OF RADIOGRAPHIC IMAGES Routine 07/28/2022 1:00 PM EDT Periodontal disease Dental calculus Localized gingival recession THINPREP IMAGING PAP AND HPV MRNA E6/E7 WITH REFLEX TO HPV 16,18/45 Routine 11/16/2021 10:40 AM EDT from Last 3 Months or Most Recently Relevant to Health Maintenance Results * US Pelvis Transvaginal (06/19/2024 3:16 PM EDT) Anatomical Region Laterality Modality Pelvis Ultrasound 06/19/2024 3:16 PM EDT Narrative 06/19/2024 4:00 PM EDT ? [facility] ?[address] [facility] . ? [place] [address] ? Ultrasound Report ? Signed ? Patient: Lesley Barraza I ?MR#: ?? [id number] ? : 1970 ?Acct:[id number] ? Age/Sex: 54 / F ?ADM Date: 04/03/25 ? Loc: HO.HMGCX ? Attending Dr: Pham Kwan CNM ? Ordering Physician: PHAM KWAN CNM ?? Date of Service: 06/19/24 ?? Procedure(s): US pelvic and transvaginal ?? Accession Number(s): [id number] ? cc: Name,Sukhdeep AUSTIN; PHAM KWAN CNM ? EXAMINATION: ??US PELVIS TRANSABDOMINAL AND TRANSVAGINAL ? HISTORY: f/u fibroid and right ovarian cyst ? COMPARISON: Comparison is made with the prior examination dated ?? 11/08/2021. ? TECHNIQUE: ? Transabdominal and endovaginal real-time 2D colindres-scale ultrasound was ?? performed. ? FINDINGS: ? Uterus: ??The uterus is normal in size, measuring 7.1 x 5.0 x 6.2 cm. ? Myometrium has a normal echotexture. ??Again seen are multiple fibroids ?? including a posterior fibroid measuring 1.8 x 1.6 x 2.0 cm, which was ?? not seen previously, a 1.1 x 1.1 x 1.1 cm anterior fibroid which ?? previously measured 0.9 x 0.6 x 0.9 cm, and a 1.0 x 0.8 x 0.8 cm ?? posterior fibroid, previously measuring 0.5 x 0.4 x 0.8 cm. ? Endometrium: ??The endometrial stripe measures 5 mm in thickness. There ?? are nabothian cysts in the cervix. ? Right ovary: ??The right ovary is not identified. ? Left ovary: ?? The left ovary measures 2.0 x 1.6 x 2.1 cm. ??The left ?? ovary is normal in size and echotexture. ? Pelvic fluid: none. ? US/US pelvic and transvaginal ?? IMPRESSION: ?? Fibroid uterus as described. The right ovary is not identified. The ?? left ovary is unremarkable. ? Electronically signed by: ??Ridge Hay MD ??06/19/2024 03:56 PM EDT ?? RP ? Dictated By: ?Ridge Hay MD ? Signed By: ?<Electronically signed by Ridge Hay MD in OV> ?06/19/246 ? DD/ 15 ? TD/TT: 06/19/241550 ? Jackscrew Man: ? Procedure Note Donotuseinterpreter, Image - 06/19/2024 [facility] [address] [place] [address] [place] [address] Ultrasound Report Signed Patient: Lesley Barraza IMR#: [id number] : 1970Acct:[id number] Age/Sex: 54 / FADM Date: 06/19/24 Loc: HO.HMGCX Attending Dr: Pham Kwan CNM Ordering Physician: PHAM KWAN CNM Date of Service: 06/19/24 Procedure(s): US pelvic and transvaginal Accession Number(s): [id number] cc: Sukhdeep Paul MD; PHAM KWNA CNM EXAMINATION: US PELVIS TRANSABDOMINAL AND TRANSVAGINAL HISTORY: f/u fibroid and right ovarian cyst COMPARISON: Comparison is made with the prior examination dated 11/08/2021. TECHNIQUE: Transabdominal and endovaginal real-time 2D colindres-scale ultrasound was performed. FINDINGS: Uterus: The uterus is normal in size, measuring 7.1 x 5.0 x 6.2 cm. Myometrium has a normal echotexture. Again seen are multiple fibroids including a posterior fibroid measuring 1.8 x 1.6 x 2.0 cm, which was not seen previously, a 1.1 x 1.1 x 1.1 cm anterior fibroid which previously measured 0.9 x 0.6 x 0.9 cm, and a 1.0 x 0.8 x 0.8 cm posterior fibroid, previously measuring 0.5 x 0.4 x 0.8 cm. Endometrium: The endometrial stripe measures 5 mm in thickness. There are nabothian cysts in the cervix. Right ovary: The right ovary is not identified. Left ovary: The left ovary measures 2.0 x 1.6 x 2.1 cm. The left ovary is normal in size and echotexture. Pelvic fluid: none. US/US pelvic and transvaginal IMPRESSION: Fibroid uterus as described. The right ovary is not identified. The left ovary is unremarkable. Electronically signed by: Ridge Hay MD 06/19/2024 03:56 PM EDT Dictated By: Ridge Hay MD Signed By: <Electronically signed by Ridge Hay MD in OV> 06/19/24 1556 DD/ 1516 TD/TT: 06/19/24 1551 Jackscrew Man: Pham TIP[facility] IMG US PROCEDURES Final R esult * Syphilis Screen (06/03/2024 1:53 PM EDT) Syphilis Screen Nonreactive Nonreactive [facility] Blood Venous blood specimen / Unknown 06/03/2024 1:53 PM EDT 06/03/2024 4:31 PM EDT [facility] BLOOD ORDERABLES Christy l Result Performing Organization Address [facility] Co de Phone Number [facility] [address] [place] [phone] * Hepatitis C Antibody with Reflex to HCV, RNA, Quantitative, Real-Time PCR (06/03/2024 1:53 PM EDT) Pathologist [facility] Hepatitis C Antibody Nonreactive Nonreactive [facility] Comment:Antibodies to HCV no t detected; does not exclude early acuteHCV infection. Blood Venous blood specimen / Unknown 06/03/2024 1:53 PM EDT 06/03/2024 4:18 PM EDT [facility]ABLES Christy l Result Performing Organization Address City/[facility]/ZIP Co de Phone Number [facility] [address] [place] [phone] * Chlamydia/N. Gonorrhoeae RNA, TMA, Vagina (06/03/2024 1:53 PM EDT) CT PCR NOT DETECTED Not Detect. [facility] Comment:A not detected test result does not exclude the possibilityof infection because test results can be affected byimproper specimen collection, concurrent antibiotic therapy,or the number of organisms in the specimen which may bebelow the sensitivity of the test. As with many diagnostictests, results from the Xpert CT/NG assay should beinterpreted in conjunction with other laboratory andclinical data available to the clinician.Xpert CT/NG performance has not been evaluated in patientsless than 14 years of age. The assay should not be used forthe evaluationof suspected sexual abuse or for other medico-legalindications. Additional testing is recommended in anycircumstance when false positive or false negative resultscould lead to adverse medical, social or psychologicalconsequences. NG PCR NOT DETECTED Not Detect. [facility] Comment:A not detected test result does not exclude the possibilityof infection because test results can be affected byimproper specimen collection, concurrent antibiotic therapy,or the number of organisms in the specimen which may bebelow the sensitivity of the test. As with many diagnostictests, results from the Xpert CT/NG assay should beinterpreted in conjunction with other laboratory andclinical data available to the clinician.Xpert CT/NG performance has not been evaluated in patientsless than 14 years of age. The assay should not be used forthe evaluationof suspected sexual abuse or for other medico-legalindications. Additional testing is recommended in anycircumstance when false positive or false negative resultscould lead to adverse medical, social or psychologicalconsequences. Swab Vaginal structure / Unknown 06/03/2024 1:53 PM EDT 06/03/2024 4:19 PM EDT Narrative [facility] - 06/04/2024 4:00 AM EDT Urine us Pham TIPTON LAB MICROBIOLOGY - GENERA L ORDERABLES Final Result [facility] [address] [place] [phone] * Hepatitis B surface antigen, EIA (06/03/2024 1:53 PM EDT) Pathologist [facility] Hepatitis B Surface Ag Negative Negative [facility] Blood Venous blood specimen / Unknown 06/03/2024 1:53 PM EDT 06/03/2024 4:18 PM EDT Pham Kwan [facility] BLOOD ORDERABLES Christy l Result Performing Organization Address City/[facility]/ZIP Co de Phone Number [facility] [address] [place] [phone] * Hepatitis B Core Antibody, Total (06/03/2024 1:53 PM EDT) Pathologist [facility] Hepatitis B Core Antibody Nonreactive Nonreactive [facility] Blood Venous blood specimen / Unknown 06/03/2024 1:53 PM EDT 06/03/2024 4:18 PM EDT [facility] BLOOD ORDERABLES Christy l Result Performing Organization Address [facility] Co de Phone Number [facility] [address] [place] [phone] * HIV-1/2 Antigen and Antibodies, Fourth Generation, with Reflexes (06/03/2024 1:53 PM EDT) Pathologist [facility] HIV AB/AG Nonreactive Nonreactive [facility] Comment:HIV-1 p24 Ag and/or HIV-1/HIV-2 Ab not detected.A test result that is nonreactive does not exclude thepossibility of exposure to or infection with HIV-1 and/orHIV-2. Nonreactive results in this assay for individualswith prior exposure to HIV-1 and/or HIV-2 may be due toantigen and antibody levels that are below the limit ofdetection of this assay.The [employer]way HIV Ag/Ab Combo assay result andsupplemental assay results should be interpreted inconjunction with the patient's clinical presentation,history and other laboratory results. If the results areinconsistent with clinical evidence, additional testing issuggested to confirm the result. Blood Venous blood specimen / Unknown 06/03/2024 1:53 PM EDT 06/03/2024 4:18 PM EDT [facility] BLOOD ORDERABLES Christy l Result Performing Organization Address City/[facility]/ZIP Co de Phone Number [facility] [address] [place] [phone] * Hepatitis B Surface Antibody, Qualitative (06/03/2024 1:53 PM EDT) ~Hepatitis B Surface Antibody NONREACTIVE Nonreactive [facility] Comment:Nonreactive: < 8.00 mIU/mL Blood Venous blood specimen / Unknown 06/03/2024 1:53 PM EDT 06/03/2024 4:18 PM EDT [facility] LAB BLOOD ORDERABLES Christy l Result Performing Organization Address [facility] Co de Phone Number [facility] [address] [place] [phone] * (ABNORMAL) Bacterial Vaginosis (06/03/2024 1:37 PM EDT) Pathologist [facility] TRICHOMONAS VAGINALIS DETECTION BY PCR NOT DETECTED Not Detect [facility] BACTERIAL VAGINOSIS DETECTION BY PCR POSITIVE(A) Negative [facility] Comment:The BV organism targ ets of the Xpert Xpress MVP test can becommensal in women; Xpert Xpress MVP positive results forbacterial vaginosis should be considered in conjunction withother clinical and patient information to determine thedisease status. Organisms that are not detected by the XpertXpress MVP test have also been reported to be associatedwith BV and aerobic vaginitis.The Xpert Xpress MVP test performance has not been evaluatedin patients under the age of 14. LISA [employer] DETECTION BY PCR NOT DETECTED Not Detect [facility] Lisa glab krusei PCR NOT DETECTED Not Detect [facility] 06/03/2024 1:37 PM EDT 06/03/2024 4:48 PM EDT Pham Kwan CNM LAB MICROBIOLOGY - GENERA L ORDERABLES Final Result [facility] [address] [facility] [place] [phone] * Hm Colonoscopy (03/06/2024 9:11 AM EST) Colonoscopy Normal Normal 03/06/2024 9:11 AM EST Sukhdeep Paul MD HEALTH MAINTENANCE Final Result * BI Mammogram Screening Tomosynthesis Bilateral (08/09/2023 4:03 PM EDT) Anatomical Region Laterality Modality Breast Bilateral Mammography 08/09/2023 4:03 PM EDT Narrative 08/31/2023 6:12 AM EDT ? [facility] ? [address] ?[place] [address] ? Mammography Report ? Signed ? Patient: Lesley Barraza I ?MR#: ?? [id number] ? : 1970 ?Acct:[id number] ? Age/Sex: 53 / F ?ADM Date: 05/23/24 ? Loc: HO.MAMMO ? Attending Dr: Sukhdeep Name MD ? Ordering Physician: Name,Sukhdeep MD ?Results: 1Negative ? Date of Service: 08/09/23 ?Follow Up: 1 Year From Orig ?? inal Mammogram ? Procedure(s): MM tomosynthesis screening BI ?? Accession Number(s): [id number] ? cc: Name,Sukhdeep AUSTIN ? EXAMINATION: ?? MM SCREENING DIGITAL BREAST TOMOSYNTHESIS, BILATERAL ? CLINICAL INFORMATION: ? Screening. Asymptomatic. ? COMPARISON: ?? Mammography: This study is compared with prior exams dating back to ?? 2018. ? TECHNIQUE: ?? Digital breast tomosynthesis is performed in both the craniocaudal and ?? mediolateral oblique views along with computer-aided detection (CAD). ?? Synthesized 2D images are generated from the tomosynthesis. ? FINDINGS: ?? There are scattered areas of fibroglandular density (ACR BI-RADS breast ?? composition Category b). ? There are no significant masses, abnormal calcifications, or other ?? abnormalities. ? MM/MM tomosynthesis screening BI ?? IMPRESSION: ?? No mammographic evidence of malignancy. ? ASSESSMENT: ? BI-RADS BI-RADS 1 - Negative ? RECOMMENDATION: ?? Routine annual mammography screening. ? 1 year F/U ? This examination should not preclude the clinical evaluation of a ?? suspicious palpable abnormality. ? This patient's information was entered into a reminder system with a ?? target due date for their next mammogram. ? Dictated By: ?Shilpa Hannah MD ? Signed By: ?<Electronically signed by Shilpa Hannah MD in OV> ? 08/31/23 0609 ? DD/ 1603 ? TD/TT: ? Jackscrew Man: ? Procedure Note Tova, García - 08/31/2023 [facility] [address] [place] [address] Dr. Castaneda, CRISPIN [address] Mammography Report Signed Patient: Lesley Barraza IMR#: [id number] : 1970Acct:[id number] Age/Sex: 53 / FADM Date: 08/09/23 Loc: HO.MAMMO Attending Dr: Sukhdeep Paul MD Ordering Physician: Sukhdeep Paulesults: 1Negative Date of Service: 08/09/23Follow Up: 1 Year From Orig inal Mammogram Procedure(s): MM tomosynthesis screening BI Accession Number(s): [id number] cc: Sukhdeep Paul MD EXAMINATION: MM SCREENING DIGITAL BREAST TOMOSYNTHESIS, BILATERAL CLINICAL INFORMATION: Screening. Asymptomatic. COMPARISON: Mammography: This study is compared with prior exams dating back to 2018. TECHNIQUE: Digital breast tomosynthesis is performed in both the craniocaudal and mediolateral oblique views along with computer-aided detection (CAD). Synthesized 2D images are generated from the tomosynthesis. FINDINGS: There are scattered areas of fibroglandular density (ACR BI-RADS breast composition Category b). There are no significant masses, abnormal calcifications, or other abnormalities. MM/MM tomosynthesis screening BI IMPRESSION: No mammographic evidence of malignancy. ASSESSMENT: BI-RADS BI-RADS 1 - Negative RECOMMENDATION: Routine annual mammography screening. 1 year F/U This examination should not preclude the clinical evaluation of a suspicious palpable abnormality. This patient's information was entered into a reminder system with a target due date for their next mammogram. Dictated By: Shilpa Hannah MD Signed By: <Electronically signed by Shilpa Hannah MD in OV> 08/31/23 0609 DD/ 1603 TD/TT: Jackscrew Man: Sukhdeep Paul MD IM BI PROCEDURES Edited Result - Final * (ABNORMAL) Lipid Panel, Standard (07/17/2023 9:45 AM EDT) Triglycerides 313(H) <150 mg/dL [facility] Comment:Desirable Triglyceri de: less than 150 mg/dLBorderline High Triglyceride 150-199 mg/dLHigh Triglyceride: 200-499 mg/dLVery High Triglyceride: greater than or equal to 5OO mg/dL Cholesterol 281(H) <200 mg/dL [facility] Comment:Desirable Cholestero l: less than 200 mg/dLBorderline High Cholesterol: 200-239 mg/dLHigh Cholesterol: greater than 239 mg/dL LDL Cholesterol Calculated 158(H) <100 mg/dL [facility] Comment:Desirable LDL: less than 100 mg/dLNear Optimal/Above Optimal LDL: 110- 129 mg/dLBorderline High LDL: 130-159 mg/dLHigh LDL: 160-189 mg/dLVery High LDL: greater than or equal to 190 mg/dL HDL Cholesterol 61 >40 mg/dL [facility] Comment:Desirable HDL: great er than 40 mg/dL Note: This HDL assay may give artificially low results in patients with liver disease. Blood Venous blood specimen / Unknown 07/17/2023 9:45 AM EDT 07/17/2023 11:45 AM EDT us Sukhdeep Paul MD LAB BLOOD ORDERABLES Final Resul t [facility] [address] [place] [phone] * Hemoglobin A1c (07/17/2023 8:38 AM EDT) Hemoglobin A1c 6.0 <6.0 % [facility] Comment:Hemoglobin A1C Refer ence Range Adults: 4.8 - 6.0 % Non diabetic: < 6.0 % Goal: < 7.0 %Additional Action Suggested: > 8.0 %Note: Hemoglobin A1c results are invalid for patients with abnormal amounts of HbF. Blood transfusions may impact the HbA1c concentration in the patient sample. Estimated Average Glucose 126 mg/dL [facility] Comment:eAG = Estimated ave rage glucose which is %A1C expressed asaverage glucose, using the formula of the P4T-DixjxqaWhjrfuy Glucose study (ADAG), Diabetes Care, Vol.31,#8,Oct. 2007 Blood Venous blood specimen / Unknown 07/17/2023 8:38 AM EDT 07/17/2023 11:41 AM EDT us Sukhdeep Paul MD LAB BLOOD ORDERABLES Final Resul t [facility] [address] [place] [address] [phone] * THINPREP TIS PAP AND HPV mRNA E6/E7 WITH REFLEX TO HPV 16,18/45 (11/16/2021 10:40 AM EDT) Clinical Information: None given [facility] COMMENT SEE COMMENT [facility] Comment: EXPLANATORY NOTE: ? The Pap is a screening test for cervical cancer. It is ?? not a diagnostic test and is subject to false negative ?? and false positive results. It is most reliable when a ?? satisfactory sample, regularly obtained, is submitted ?? with relevant clinical findings and history, and when ?? the Pap result is evaluated along with historic and ?? current clinical information. ?? COMMENT: This Pap test has been evaluated with computer assisted technology. [facility] Cytotechnologis t: SEE COMMENT [facility] Comment: GSG, CT(ASCP) CT screening location: [address] ??[address] HPV nRNA E6/E7 Not Detected Not Detected [facility] Comment: Methodology: Information Security Engineer-Mediated Amplification This assay detects E6/E7 viral messenger RNA (mRNA) from 14 high-risk HPV types (16,18,31,33,35,39,45,51,52,56,58,59,66,68). ? Cervical sources are required for HPV testing. If a vaginal source from a patient who has had a total hysterectomy with removal of cervix was ?? submitted, please contact the testing laboratory for alternative testing options. ?? For additional information, please refer to http://education.[employer]/faq/XDB166z3 (This link if provided for information/ educational purposes only.) Interpretation/ Result: Negative for intraepithelial lesion or malignancy. [facility] LMP: 11/07/21 [facility] Prev. BX: NONE GIVEN [facility] Prev. PAP: 11/02 [facility] SOURCE: None given [facility] Statement Of Adequacy: SEE COMMENT [facility] Comment: Satisfactory for evaluation. Endocervical/transformation zone component present. 11/16/2021 10:4 0 AM EDT Pham Kwan CNM LAB PATHOLOGY ORDERABLES Final Result [facility] [address] [place] [address], from Last 3 Months or Most Recently Relevant to Health Maintenance Insurance [facility] DENTAL - HSN PARTIAL (MEDICAID) DENTAL - [employer] DENTAL PPO * Guarantor: Lesley Barraza Account Type Relation to Patient Date of Phone Billing Address Personal/Family Self [address] [phone] Care Teams Electrical Continuity Tester Relationship Specialty Start Date End Date Name, MD Sukhdeep [address] [place] [address] PCP - General Internal Medicine 06/02/22
--- OUTSIDE RECORDS SUMMARY | 2024-06-19 16:39 | XMS_ITS | Encounter Summary ---
Author Organization [facility] Address [address] [facility] 7t [place] [address] Care Team Providers Care Teletype Technician Name Role Phone Name, Sukhdeep AUSTIN Primary Care Provider [phone] Encounter Details Date Type Department Care Team (Late Contact Info) Description 08/02/2022 Abstract [facility]ULT D[facility] [address] [place], [place] [phone] Cordelia Uriarte [address] [place] [address] Social History Tobacco Use Types Packs/Day Years [...] Orientation Straight 01/16/2022 10 :15 AM EDT COVID-19 Exposure Response Date Recorded In the last 10 days, have yo u been in contact with someone who was confirmed or suspected to have Coronavirus/COVID-19? No / Unsure 07/28/2022 12:42 PM EDT documented as of this encounter Plan of Treatment Upcoming Encounters Date Type Department Care Team (Late Contact Info) Description 07/03/2024 2:00 PM EDT Immunization [facility] [address] [place] [address] 08/12/2024 2:45 PM EDT Office Visit [facility] [address] [place] [address] NameSukhdeep MD [address] [place] [address] 11/21/2024 8:00 AM EDT Office Visit [facility] ADULT DENT[facility] [address] [place] [address] Cordelia Uriarte [address] [place] [address] documented as of this encounter Visit Diagnoses Not on filedocumented in this encounter Additional Health Concerns Assessment Noted Time PHQ-9 Depression Total Score: 0 07/12/19 9:22 AM EDT documented as of this encounter Care Teams Teletype Technician Relationship Specialty Start Date End Date NameSukhdeep MD [address] [place] [address] PCP - General Internal Medicine 06/02/22 documented as of this encounter
--- OUTSIDE RECORDS SUMMARY | 2024-06-19 16:39 | XMS_ITS | Encounter Summary ---
Author Organization [facility] Address [address] [facility] [address] [place] [address] Care Team Providers Care Sharepoint Engineer Name Role Phone Monica Chavez Primary Care Provider [phone] Sukhdeep Paul MD Primary Care Provider [phone] Encounter Details Date Type Department Care Team (Latest Contact Info) Description 12/11/2018 Abstract [facility] CONVERSIONS Dental, Provider, DDS Social History Tobacco [...] Upcoming Encounters Date Type Department Care Team ( st Contact Info) Description 07/03/2024 2:00 PM EDT Immunization [facility] [address] [place] [address] 08/12/2024 2:45 PM EDT Office Visit [facility] [address] [place] [address] Name, MD Sukhdeep [address] [place] [address] 11/21/2024 8:00 AM EDT Office Visit [facility] ADULT DENTAL [address] [place], [place] [phone] Cordelia Uriarte [address] [place] [address] documented as of this encounter Visit Diagnoses Not on filedocumented in this encounter Care Teams Sharepoint Engineer Relationship Specialty Start Date End Date Monica Chavez FNP [address] [place] [address] PCP - General Family Medicine 11/08/21 06/01/22 Name, MD Sukhdeep [address] [place] [address] PCP - General Internal Medicine 06/02/22 documented as of this encounter
--- OUTSIDE RECORDS SUMMARY | 2024-06-19 16:39 | XMS_ITS | Encounter Summary ---
Author Organization [employer] Address [address] [facility] 7t [place] [address] Care Team Providers Care Motion Picture Printer Name Role Phone Name, Sukhdeep AUSTIN Primary Care Provider [phone] Reason for Visit * Reason Comments Med Refill Encounter Details Date Type Department Care Team (Late st Contact Info) Description 06/16/2024 Refill [facility] [address] [place], [place] [phone] Name, MD Sukhdeep [address] [place] [address] Hypertension, unspecified type Social History Tobacco Use Types Packs/Day Years Used Date Smoking Tobacco: Former Cigarettes Q uit: 10/15/2023 Smokeless Tobacco: Never Alcohol Use Standard Drinks/Week [...] Info) Description 07/03/2024 2:00 PM EDT Immunization [facility] [address] [place] [address] 08/12/2024 2:45 PM EDT Office Visit [facility] [address] [place] [address] NameSukhdeep MD [address] [place] [address] 11/21/2024 8:00 AM EDT Office Visit [facility] ADULT DENT[facility] [address] [place] [address] Cordelia Uriarte [address] [place] [address] documented as of this encounter Visit Diagnoses Diagnosis Hypertension, unspecified type documented in this encounter Additional Health Concerns Assessment Noted Time PHQ-9 Depression Total Score: 0 07/30/19 24 1:52 PM EDT documented as of this encounter Care Teams Motion Picture Printer Relationship Specialty Start Date End Date Sukhdeep Paul MD [address] [place] [address] PCP - General Internal Medicine 06/02/22 documented as of this encounter
--- OUTSIDE RECORDS SUMMARY | 2024-06-19 16:39 | XMS_ITS | Encounter Summary ---
Author Organization [employer] Address [address] [facility] [address] [place] [address] Care Team Providers Care Personal Security Specialist Name Role Phone Name, Sukhdeep AUSTIN Primary Care Provider [phone] Reason for Visit * Reason Onset Date Comments Medication Question 06/05/2024 Encounter Details Date Type Department Care Team ([facility] st Contact Info) Description 06/05/2024 Telephone [facility] [address] [place], [place] [phone] Name, MD Sukhdeep [address] [place], [place] [phone] Medication Question Social History Tobacco Use Types Packs/Day Years [...] the past 12 months, has t he [employer], gas, oil or water company threatened to [...] AM EDT documented as of this encounter Miscellaneous Notes * Telephone Encounter - Laure Gregory CNM - 06/06/2024 9:45 AM EDT Thank you! * Telephone Encounter - Gini Brock RN - 06/05/2024 2:53 PM EDT Telephone call to pt. Pt reports having read about the side effects of the metronidazole PO tablet and states she would like the gel medication for bacterial vaginosis. Denies having taken the PO med. Reviewed with pt again that per provider note from 06/04/24, treatment can be deferred if no symptoms. Pt stated she prefers to try something. Advised her provider will send gel medication again later today or tomorrow. Nurses obtained verbal consent from GIANNI Gregory to call [facility] pharmacy and request metro gel Rx from 06/04/24 to be reactivated and to cancel PO Kristie Rodriguez in [facility] pharmacy verbalized understanding and will fill Rx. * Telephone Encounter - Laure Gregory CNM - 06/05/2024 2:12 PM EDT Please make sure no allergic reaction with oral metronidazole. If simply having metallic taste in mouth or GI upset, that's fine, I will send in gel. * Telephone Encounter - Sinan Duong - 06/05/2024 1:20 PM EDT Tc from pt requesting to see if it spossible to be switched from med metroNIDAZOLE (Flagyl) 500 MG tablet to the metroNIDAZOLE (Metrogel) 0.75 % vaginal gel. Pt states that was gonna be the original Script but she wanted to go for the pills but now she is having side affects from the pill and would prefer the Gel. Contact pt at [phone] documented in this encounter Plan of Treatment Upcoming Encounters Date Type Department Care Team (Late st Contact Info) Description 07/03/2024 2:00 PM EDT Immunization [facility] MED[facility] [address] [place] [address] 08/12/2024 2:45 PM EDT Office Visit [facility] [address] [place] [address] Name, MD Sukhdeep [address] [place] [address] 11/21/2024 8:00 AM EDT Office Visit [facility] ADULT DENTAL [address] [place] [address] Cordelia Uriarte [address] [place] [address] documented as of this encounter Visit Diagnoses Not on filedocumented in this encounter Additional Health Concerns Assessment Noted Time PHQ-9 Depression Total Score: 0 07/30/19 24 1:52 PM EDT documented as of this encounter Care Teams Personal Security Specialist Relationship Specialty Start Date End Date Name, MD Sukhdeep [address] [place] [address] PCP - General Internal Medicine 06/02/22 documented as of this encounter
== END 2024-06-19 15:14 | disposition home or self-care (01) ==
LOC: HO.HMGCX 15:13
PROVIDERS: PCP Internal Medicine Geriatric Medicine; Visit Provider Advanced Practice Midwife
DX: D21.9 Benign neoplasm of connective and other soft tissue, unspecified (principal); N83.201 Unspecified ovarian cyst, right side
CPT/HCPCS: 76830; 76856

== ENCOUNTER → 2024-06-19 15:16 | Outpatient (BNV) | payer OTHER, SELFPAY | PROVIDERS: PCP Internal Medicine Geriatric Medicine; Visit Provider Radiology Diagnostic Radiology | DX: D25.9 Leiomyoma of uterus, unspecified (principal) | CPT/HCPCS: 76830; 76856 ==

== ENCOUNTER 2024-11-24 08:25 | Outpatient (REF) | payer OTHER, SELFPAY ==
--- OUTSIDE RECORDS SUMMARY | 2024-11-24 09:19 | XMS_ITS | Encounter Summary ---
Author Organization [employer] Address [address] [facility] 7t [place] [address] Care Team Providers Care Fisher Diver Net Name Role Phone Name, Sukhdeep AUSTIN Primary Care Provider [phone] Reason for Visit * Reason Comments Med Refill Encounter Details Date Type Department Care Team ([facility] st Contact Info) Description 05/28/2023 Refill [facility] [address] [place] [phone] Grabiel Smith MD [address] [place], [place] [phone] Social History Tobacco Use Types Packs/Day Years [...] Care Team (Late st Contact Info) Description 12/02/2024 9:15 AM EDT Office Visit [facility] [address] [place] [address] NameSukhdeep MD [address] [place] [address] 05/26/2025 3:00 PM EDT Office Visit [facility]ULT [facility] [address] [place] [address] Kalani, Cordelia [address] [place] [address] documented as of this encounter Visit Diagnoses Not on filedocumented in this encounter Additional Health Concerns Assessment Noted Time PHQ-9 Depression Total Score: 0 07/12/19 23 9:22 AM EDT documented as of this encounter Care Teams Fisher Diver Net Relationship Specialty Start Date End Date Name, MD Sukhdeep [address] [place] [address] PCP - General Internal Medicine 06/02/22 documented as of this encounter
--- OUTSIDE RECORDS SUMMARY | 2024-11-24 09:19 | XMS_ITS | Encounter Summary ---
Author Organization [employer] Address [address] [facility] 7t [place] [address] Care Team Providers Care It Portfolio Manager Name Role Phone NameSukhdeep MD Primary Care Provider [phone] Reason for Visit * Reason Onset Date Comments Medication Question 06/05/2024 Encounter Details Date Type Department Care Team ([facility] st Contact Info) Description 06/05/2024 Telephone [facility] MEDICINE [address] [place], [place] [phone] Name, MD Sukhdeep [address] [place], [place] [phone] Medication Question Social History Tobacco Use Types [...] the past 12 months, has t he [employer] gas, oil or water company threatened to [...] verbal consent from GIANNI Gregory to call [facility] pharmacy and request metro gel Rx from 06/04/24 to be reactivated and to cancel PO Kristie Rodriguez in [facility] pharmacy verbalized understanding and will fill Rx. [...] would prefer the Gel. Contact pt at [phone] documented in this encounter Plan of Treatment Upcoming Encounters Date Type Department Care Team (Late st Contact Info) Description 12/02/2024 9:15 AM EDT Office Visit [facility] MEDICINE [address] [place] [address] Name, MD Sukhdeep [address] [place] [address] 05/26/2025 3:00 PM EDT Office Visit [facility] ADULT DENTAL [address] [place] [address] Cordelia Uriarte [address] [place] [address] documented as of this encounter Visit Diagnoses Not on filedocumented in this encounter Additional Health Concerns Assessment Noted Time PHQ-9 Depression Total Score: 0 07/30/19 24 1:52 PM EDT documented as of this encounter Care Teams It Portfolio Manager Relationship Specialty Start Date End Date NameSukhdeep MD [address] [place] [address] PCP - General Internal Medicine 06/02/22 documented as of this encounter
--- OUTSIDE RECORDS SUMMARY | 2024-11-24 09:20 | XMS_ITS | Encounter Summary ---
Author Organization [employer] Address [address] [facility] 7t [place] [address] Care Team Providers Care Real Estate Site Analyst Name Role Phone Name, Sukhdeep AUSTIN Primary Care Provider Encounter Details Date Type Department Care Team (Late Contact Info) Description 08/02/2022 Abstract [facility] ADULT DENTAL [address] [place], [place] [phone] Cordelia Uriarte [address] [place] [address] Social History Tobacco Use Types Packs/Day Years [...] Department Care Team (Late Contact Info) Description 12/02/2024 9:15 AM EDT Office Visit [facility] MEDICINE [address] [place] [address] Name, MD Sukhdeep [address] [place] [address] 05/26/2025 3:00 PM EDT Office Visit [facility] ADULT DENTAL [address] [place] [address] KalaniCordelia [address] [place] [address] documented as of this encounter Visit Diagnoses Not on filedocumented in this encounter Additional Health Concerns Assessment Noted Time PHQ-9 Depression Total Score: 0 07/12/19 23 9:22 AM EDT documented as of this encounter Care Teams Real Estate Site Analyst Relationship Specialty Start Date End Date Name, MD Sukhdeep [address] [place] [address] PCP - General Internal Medicine 06/02/22 documented as of this encounter
--- OUTSIDE RECORDS SUMMARY | 2024-11-24 09:20 | XMS_ITS | Encounter Summary ---
Author Organization [employer] Address [address] [facility] 7t [place] [address] Care Team Providers Care Assurance Associate Name Role Phone Name, Sukhdeep AUSTIN Primary Care Provider [phone] Encounter Details Date Type Department Care Team (Late st Contact Info) Description 09/05/2022 Abstract [facility] ADULT DENTAL [address] [place], [place] [phone] Cordelia Uriarte [address] [place] [address] Social History Tobacco Use Types Packs/Day Years [...] Description 12/02/2024 9:15 AM EDT Office Visit [facility] MEDICINE [address] [place], [place] [phone] Name, MD Sukhdeep [address] [place], [place] [phone] 05/26/2025 3:00 PM EDT Office Visit [facility] ADULT DENTAL [address] [place] [address] KalaniCordelia [address] [place] [address] documented as of this encounter Visit Diagnoses Not on filedocumented in this encounter Additional Health Concerns Assessment Noted Time PHQ-9 Depression Total Score: 0 07/12/19 9:22 AM EDT documented as of this encounter Care Teams Assurance Associate Relationship Specialty Start Date End Date Name, MD Sukhdeep [address] [place] [address] PCP - General Internal Medicine 06/02/22 documented as of this encounter
--- OUTSIDE RECORDS SUMMARY | 2024-11-24 09:20 | XMS_ITS | Clinical Summary ---
Author Organization [employer] Address [address] [facility] 7[address] [place] [address] Care Team Providers Care Medical Care Manager Name Role Phone Name, Sukhdeep AUSTIN Primary Care Provider [phone] Allergies Active Allergy Reactions Criticality Noted Date Comments Oxycodone Swelling Oxycodone-Acetaminophen Rash Low 07/17/2022 throat swelling Varicella Virus Vaccine Live 05/15/2012 Other reaction(s): LOCAL REACTION, RED RAISED ITCHY Medications Spacer/Aero-Hold ing Chambers (OptiChamber Molly) miscIndications: Influenza-like symptoms 1 each every 4 (four) hours if needed (asthma). 1 each 3 Active nicotine (Nicoderm CQ) 14 MG/24HR patch Place 1 patch on the skin 1 (one) time each day at the same time. 42 patch 4 Active nicotine (Nicoderm CQ) 7 MG/24HR patch Place 1 patch on the skin 1 (one) time each day at the same time. 14 patch 4 Active nicotine polacrilex (Commit) 2 MG lozenge Dissolve 1 lozenge (2 mg) in the mouth if needed for smoking cessation. 100 lozenge 4 Active famotidine (Pepcid) 20 MG tablet Take 1 tablet by mouth every 12 (twelve) hours. Active losartan (Cozaar) 25 MG tabletIndication s:Hypertension, unspecified type TAKE 1 TABLET BY MOUTH EVERY DAY 90 tablet 1 5 Active montelukast (Singulair) 10 MG tablet Take 1 tablet (10 mg) by mouth Once per day. 30 tablet 5 5 02/09/20 25 Active EPINEPHrine (Epipen) 0.3 MG/0.3ML injection syringeIndicatio ns:H/O allergic reaction Inject 0.3 mL (0.3 mg) as directed 1 (one) time if needed for anaphylaxis. Inject into upper leg. Call 911 after use. 2 each 5 08/14/19 26 Active albuterol 108 (90 Base) MCG/ACT inhalerIndicatio ns:Moderate persistent allergic asthma Inhale 2 puffs every 4 (four) hours if needed for wheezing or shortness of breath. 18 g 3 5 08/13/19 26 Active fluticasone (Flonase Allergy Relief) 50 MCG/ACT nasal sprayIndications :Moderate persistent allergic asthma Administer 1 spray into each nostril Once per day. Shake gently. Before first use, prime pump. After use, clean tip and replace cap. 16 g 12 5 08/13/19 26 Active fluticasone furoate (Arnuity Ellipta) 100 MCG/ACT inhaler Inhale 1 puff Once per day. Rinse mouth with water after use to reduce aftertaste and incidence of candidiasis. Do not swallow. 1 each 5 08/13/19 Active Active Problems Problem Noted Date Diagnosed Date Seasonal allergies 08/12/2024 Moderate persistent allergic asthma 08/12/2024 Dental caries 01/22/2024 Gingival bleeding 11/13/2023 Tobacco dependence 05/25/2023 Hypertension 04/10/2023 Periodontal disease 07/28/2022 Dental calculus 07/28/2022 Localized gingival recession 07/28/2022 Prediabetes 07/27/2022 Menorrhagia 07/11/2022 Metrorrhagia 07/11/2022 Anxiety 02/01/2012 Gastroesophageal reflux disease 09/14/2011 Encounters Date Type Department Care Team Description 08/25/2024 Telephone [facility] MEDICINE [address] [place] [address] Chris Swift MA october recalls from Last 3 Months Immunizations Immunization Administration Dates Next Due Hep A, Adult [...] Answer Date Recorded Patient Health Questionnaire-9 Score 5 08/12/2024 Patient Health Questionnaire-9 Score 5 08/12/2024 Last PHQ-9: Questionnaire Data Not on file 0 08/12/2024 Housing Stability Answer Date Recorded What is your housing situation today? I have je aguirre 08/04/[address] you li ve. Do you have problems with any of the following? None of the above 08/04/2024 Food Insecurity Answer Date Recorded Within the past 12 months, y ou worried that your food would run out before you got money to buy more: Never True 08/04/2024 Within the past 12 months,th e food you bought just didn't last and you didn't have enough money to get more: Never True Transportation Answer Date Recorded In the past 12 months, has l ack of transportation kept you from medical appts, meetings, work or from getting things needed for daily living? No 08/04/2024 Utilities Answer Date Recorded In the past 12 months, has t he electric, gas, oil or water company threatened to shut off services in your home? No 08/04/2024 Depression Answer Date Recorded Patient Health Questionnaire-2 Score 0 08/12/2024 Internet Access Answer Date Recorded Internet Access Q1 Yes 08/04/2024 Internet Access Q2 Not on file 08/04/2024 Comments No Sex and Gender Information Value Date Recorded Sex Assigned at Female 01/16/2022 10:15 AM EDT Legal Sex Female 10:15 AM EDT Gender Identity Female 01/16/2022 10:15 AM EDT Sexual Orientation Straight 01/16/2022 10 :15 AM EDT Last Filed Vital Signs Vital Sign Reading Time Taken Comments Blood Pressure 132/82 08/12/2024 2:43 PM EDT Pulse 100 08/12/2024 2:43 PM EDT Temperature 36.7 C (98 F) 08/12/2024 2:43 PM EDT Respiratory Rate 25 08/12/2024 2:43 PM EDT Oxygen Saturation 99% 08/12/2024 2:43 PM EDT Inhaled Oxygen Concentration - - Weight 75.4 kg (166 lb 3.2 oz) 08/12/2024 2:43 P M EDT Height 157.5 cm (5' 2 ) 08/12/2024 2:43 PM EDT Body Mass Index 30.4 08/12/2024 2:43 PM EDT Plan of Treatment Upcoming Encounters Date Type Department Care Team (Late st Contact Info) Description 12/02/2024 9:15 AM EDT Office Visit [facility] MED[facility]INE [address] [place] [address] Name, MD Sukhdeep [address] [place] [address] 05/26/2025 3:00 PM EDT Office Visit [facility] ADULT DENTAL [address] [place] [address] Cordelia Uriarte [address] [place] [address] Health Maintenance Due Date Last Done Comments CT Colonography 1972 FIT DNA/Cologuard 1972 FIT 1972 FOBT 1972 Sigmoidoscopy 1972 Alcohol/Substance Use Screening 1984 Family Planning (PISQ) 02/19/1987 Zoster Vaccines (1 of 2) 02/19/2022 Dental Oral Exam 05/16/2024 11/13/2023, 07/28/2022 Diabetes: Hemoglobin A1C 07/16/2024 024, 07/11/2022, 09/07/2020 Mammogram 08/08/2024 08/09/2023, 06/17, 07/03/2022, Additional history exists Dental X-Ray: Bitewings 11/13/2024 11/13/2023, 07/28 COVID-19 Vaccine ( season) 2024 03/29/2021, 04/22/2020, 03/25/2020 Influenza Vaccine (#1) 2024 9, 04/06/2016, 02/22/2015, Additional history exists Dental Prophylaxis 11/21/2024 05/20/2024, 0 11/13/2023, 07/28/2022 Dental X-Ray: Full Mouth 07/29/2025 07/28/2022 SDOH Screening 08/04/2025 08/04/2024 Depression Screening 08/12/2025 08/12/2024, 08/13/19 25 Disability Screening 08/12/2025 08/12/2024 Tobacco Screening 08/12/2025 08/12/2024 Cervical Cancer Screening 11/16/2026 HPV/Cotest 11/16/2026 11/16/2021 [...] patient's age to complete this topic Meningococcal B Vaccine Aged Out No l onger eligible based on patient's age to complete [...] Procedure Name Priority Date/Time Associated Diagnosis Comments HEPATITIS C AB W/REFL TO HCV RNA, QN, PCR Routine 06/03/2024 1:53 PM EDT Screening examination for venereal disease HIV 1/2 ANTIGEN/ANTIBODY, FOURTH GENERATION W/RFL Routine 06/03/2024 1:53 PM EDT Screening examination for venereal disease PROPHYLAXIS - ADULT Routine 05/20/2024 1 [...] Recently Relevant to Health Maintenance Results * Hepatitis C Antibody with Reflex to HCV, RNA, Quantitative, Real-Time PCR (06/03/2024 1:53 PM EDT) Hepatitis C Antibody Nonreactive Nonreactive [facility] Comment:Antibodies to HCV no t detected; does not exclude early acuteHCV infection. Blood Venous blood specimen / Unknown 06/03/2024 1:53 PM EDT 06/03/2024 4:18 PM EDT us Laure Gregory [facility] LAB BLOOD ORDERABLES Christy sommer Result [facility] [address] [place] [phone] * HIV-1/2 Antigen and Antibodies, Fourth Generation, with Reflexes (06/03/2024 1:53 PM EDT) HIV AB/AG Nonreactive Nonreactive [facility] Comment:HIV-1 p24 Ag and/or HIV-1/HIV-2 Ab not detected.A test result that is nonreactive does not exclude thepossibility of exposure to or infection with HIV-1 and/orHIV-2. Nonreactive results in this assay for individualswith prior exposure to HIV-1 and/or HIV-2 may be due toantigen and antibody levels that are below the limit ofdetection of this assay.[employer] HIV Ag/Ab Combo assay result andsupplemental assay results should be interpreted inconjunction with the patient's clinical presentation,history and other laboratory results. If the results areinconsistent with clinical evidence, additional testing issuggested to confirm the result. Blood Venous blood specimen / Unknown 06/03/2024 1:53 PM EDT 06/03/2024 4:18 PM EDT Laure Gregory CNM LAB BLOOD ORDERABLES Christy l Result [facility] [address] [place] [phone] * Hm Colonoscopy (03/06/2024 9:11 AM EST) Colonoscopy Normal Normal 03/06/2024 9:11 AM EST Sukhdeep Paul MD HEALTH MAINTENANCE Final Result * BI Mammogram Screening Tomosynthesis Bilateral (08/09/2023 4:03 PM EDT) Anatomical Region Laterality Modality Breast Bilateral Mammography 08/09/2023 4:03 PM EDT Narrative 08/31/2023 6:12 AM EDT [address] [place] [address] Mammography Report Signed Patient: Lesley Barraza I MR#: [id number] : 1970 Acct:[id number] Age/Sex: 53 / F ADM Date: 08/09/23 Loc: HO.MAMMO Attending Dr: Sukhdeep Paul MD Ordering Physician: Sukhdeep Paul MD Results: 1Negative Date of Service: 08/09/23 Follow Up: 1 Year From [facility] ina Mammogram Procedure(s): MM tomosynthesis screening BI Accession Number(s): [id number] cc: Sukhdeep Paul MD EXAMINATION: MM SCREENING [...] in OV> 08/31/23 0609 DD/ 1603 TD/TT: Equipment Records Supervisor: Procedure Note Donotuseinterpreter, Image - 08/31/2023 [facility] [address] [place], [place] [address] Mammography Report Signed Patient: Lesley Barraza IMR#: [id number] : 1970Acct:[id number] Age/Sex: 53 / FADM Date: 08/09/23 Loc: NICO Attending Dr: Sukhdeep Paul MD Ordering Physician: Sukhdeep Paul MDResults: 1Negative Date of Service: 08/09/23Follow Up: 1 Year From Orig inal Mammogram Procedure(s): MM tomosynthesis screening BI Accession Number(s): [id number] cc: Sukhdeep Paul MD EXAMINATION: MM SCREENING [...] in OV> 08/31/23 0609 DD/ 1603 TD/TT: Equipment Records Supervisor: us Sukhdeep Paul MD IMG BI PROCEDURES Edited Result - Final * (ABNORMAL) Lipid Panel, Standard (07/17/2023 9:45 AM EDT) Triglycerides 313(H) <150 mg/dL [facility] Comment:Desirable Triglyceri de: less than 150 mg/dLBorderline High Triglyceride 150-199 mg/dLHigh Triglyceride: 200-499 mg/dLVery High Triglyceride: greater than or equal to 5OO mg/dL Cholesterol 281(H) <200 mg/dL [facility] Comment:Desirable Cholestero l: less than 200 mg/dLBorderline High Cholesterol: 200-239 mg/dLHigh Cholesterol: greater than 239 mg/dL LDL Cholesterol Calculated 158(H) <100 mg/dL [facility] Comment:Desirable LDL: less than 100 mg/dLNear Optimal/Above Optimal LDL: 110- 129 mg/dLBorderline High LDL: 130-159 mg/dLHigh LDL: 160-189 mg/dLVery High LDL: greater than or equal to 190 mg/dL HDL Cholesterol 61 >40 mg/dL [facility] Comment:Desirable HDL: great er than 40 mg/dL Note: This HDL assay may give artificially low results in patients with liver disease. Blood Venous blood specimen / Unknown 07/17/2023 9:45 AM EDT 07/17/2023 11:45 AM EDT us Sukhdeep Paul MD LAB BLOOD ORDERABLES Final Resul t [facility] [address] [place] [phone] * Hemoglobin A1c (07/17/2023 8:38 AM EDT) Hemoglobin A1c 6.0 <6.0 % [facility] Comment:Hemoglobin A1C Refer ence Range Adults: 4.8 - 6.0 % Non diabetic: < 6.0 % Goal: < 7.0 %Additional Action Suggested: > 8.0 %Note: Hemoglobin A1c results are invalid for patients with abnormal amounts of HbF. Blood transfusions may impact the HbA1c concentration in the patient sample. Estimated Average Glucose 126 mg/dL [facility] Comment:eAG = Estimated ave rage glucose which is %A1C expressed asaverage glucose, using the formula of the F2P-AbskgrcXbzkyfa Glucose study (ADAG), Diabetes Care, Vol.31,#8,Oct. 2007 Blood Venous blood specimen / Unknown 07/17/2023 8:38 AM EDT 07/17/2023 11:41 AM EDT us Sukhdeep Name LAB BLOOD ORDERABLES Final Resul t [facility] [address] [place] [address] [phone] * THINPREP TIS PAP AND HPV mRNA E6/E7 WITH REFLEX TO HPV 16,18/45 (11/16/2021 10:40 AM EDT) Clinical Information: None given [facility] COMMENT SEE COMMENT [facility] Comment: EXPLANATORY NOTE: The Pap is a screening test for cervical cancer. It is not a diagnostic test and is subject to false negative and false positive results. It is most reliable when a satisfactory sample, regularly obtained, is submitted with relevant clinical findings and history, and when the Pap result is evaluated along with historic and current clinical information. COMMENT: This Pap test has been evaluated with computer assisted technology. [facility] Cytotechnologis t: SEE COMMENT [facility] Comment: GSG, CT(ASCP) CT screening location: [place] [address] HPV nRNA E6/E7 Not Detected Not Detected [facility] Comment: Methodology: Technical Project Lead-Mediated Amplification This assay detects E6/E7 viral messenger RNA (mRNA) from 14 high-risk HPV types (16,18,31,33,35,39,45,51,52,56,58,59,66,68). Cervical sources are required for HPV testing. If a vaginal source from a patient who has had a total hysterectomy with removal of cervix was submitted, please contact the testing laboratory for alternative testing options. For additional information, please refer to http://education.Zyncro/faq/SLJ137s4 (This link if provided for information/ educational purposes only.) Interpretation/ Result: Negative for intraepithelial lesion or malignancy. [facility] LMP: 11/07/21 [facility] Prev. BX: NONE GIVEN [facility] Prev. PAP: 11/02 [facility] SOURCE: None given [facility] Statement Of Adequacy: SEE COMMENT [facility] Comment: Satisfactory for evaluation. Endocervical/transformation zone component present. 11/16/2021 10:4 0 AM EDT us Laure Gregory CNM LAB PATHOLOGY ORDERABLES Final Result [facility] [address] from Last 3 Months or Most Recently Relevant to Health Maintenance Insurance [facility] D[facility] - [place] PARTIAL (MEDICAID) DENTAL - [employer] DENTAL PPO Care Teams Medical Care Manager Relationship Specialty Start Date End Date Name, MD Sukhdeep [address] [place] [id number] PCP - General Internal Medicine 06/02/22
--- OUTSIDE RECORDS SUMMARY | 2024-11-24 09:20 | XMS_ITS | Encounter Summary ---
Author Organization [employer] [facility] Address [address] [facility] [address] [place] [address] Care Team Providers Care Play Reader Name Role Phone Monica Chavez Primary Care Provider [phone] Sukhdeep Paul MD Primary Care Provider [phone] Encounter Details Date Type Department Care Team (Latest Contact Info) Description 04/05/2021 Abstract [facility] CONVERSIONS Dental, Provider, DDS Social History Tobacco [...] Office Visit [facility] MEDICINE [address] [place], [place] [phone] NameSukhdeep MD [address] [place] [address] 05/26/2025 3:00 PM EDT Office Visit [facility] ADULT DENTAL [address] [place], [place] [phone] Cordelia Uriarte [address] [place] [address] documented as of this encounter Visit Diagnoses Not on filedocumented in this encounter Care Teams Play Reader Relationship Specialty Start Date End Date Phalen, Monica, WRAPPER HAND [address] [place] [address] PCP - General Family Medicine 11/08/21 06/01/22 Name, MD Sukhdeep [address] [place] [address] PCP - General Internal Medicine 06/02/22 documented as of this encounter
--- OUTSIDE RECORDS SUMMARY | 2024-11-24 09:20 | XMS_ITS | Encounter Summary ---
Author Organization [employer] [facility] Address [address] [facility] [address] [place] [address] Care Team Providers Care Casting Finisher Name Role Phone Monica Chavez Primary Care Provider [phone] Sukhdeep Paul MD Primary Care Provider [phone] Encounter Details Date Type Department Care Team (Latest Contact Info) Description 12/11/2018 Abstract [facility] CONVERSIONS Dental, Provider, DDS Social History Tobacco [...] Description 12/02/2024 9:15 AM EDT Office Visit [facility] MEDICINE [address] [place], [place] [phone] NameSukhdeep MD [address] [place] [address] 05/26/2025 3:00 PM EDT Office Visit [facility] ADULT DENTAL [address] [place], [place] [phone] Cordelia Uriarte [address] [place] [address] documented as of this encounter Visit Diagnoses Not on filedocumented in this encounter Care Teams Casting Finisher Relationship Specialty Start Date End Date Monica Chavez FNP [address] [place] [address] PCP - General Family Medicine 11/08/21 06/01/22 Name, MD Sukhdeep [address] [place] [address] PCP - General Internal Medicine 06/02/22 documented as of this encounter
[2024-11-24 11:22] LABS: MANUAL DIFF FLAG NO
[2024-11-24 11:31] LABS: Hematocrit 40.2 % (37.0-47.0); Hemoglobin 12.8 g/dl (12.0-16.0); Imm Gran Abs Auto 0.02 X10*3/uL (0.00-0.03); Imm Gran Pct Auto 0.4 % (0.0-0.4); Lymphocytes Absolute Auto 1.7 X10*3/uL (1.2-4.9); Mean Corpuscular HGB Conc 31.8 g/dl (31.0-35.0); Mean Corpuscular Hemoglobin 25.1 pg (27.0-33.0); Mean Corpuscular Volume 79.0 fL (80.0-98.0); NRBC Abs Auto 0.000 X10*3/uL (0.0-0.012); NRBC Pct Auto 0.0 /100WBC (0.0-0.2); Platelet Count 220 X10*3/uL (160-400); Red Blood Count 5.09 X10*6/uL (4.20-5.50); White Blood Count 5.7 X10*3/uL (4.8-10.8)
[2024-11-24 11:42] LABS: Hemoglobin A1C 138.2075 umol/L; Total Hemoglobin (HGBA1C) 3297.4487 umol/L
[2024-11-24 11:48] LABS: Alanine Aminotransferase 23 U/L (0-31); Albumin Level 4.0 g/dL (3.5-5.0); Alkaline Phosphatase 86 U/L (39-117); Anion Gap 11 (12-20); Aspartate Amino Transferase 25 U/L (5-31); Blood Urea Nitrogen 14 mg/dL (9-16); Calcium 8.9 mg/dL (8.4-10.2); Carbon Dioxide 27 mmol/L (22-29); Chloride 108 mmol/L (96-108); Cholesterol 243 mg/dL (<200); Estimated Glomerular Filt Rate > 60; HDL Cholesterol 53 mg/dL (>40); Potassium 4.0 mmol/L (3.3-5.1); Sodium 142 mmol/L (135-145); Total Protein 6.8 g/dL (6.5-8.0); Triglycerides 331 mg/dL (<150)
== END 2024-11-24 08:26 | disposition home or self-care (01) ==
LOC: HO.HHCL 08:25
PROVIDERS: PCP Internal Medicine Geriatric Medicine; Visit Provider Internal Medicine Geriatric Medicine
DX: R73.03 Prediabetes (principal); R63.5 Abnormal weight gain
CPT/HCPCS: 36415; 80053; 80061; 83036; 85025

== ENCOUNTER 2024-12-02 10:15 | Outpatient (REF) | payer OTHER, SELFPAY ==
--- NOTE | ~2024-12-02 | XR_ITS ---
EXAMINATION: XR HAND, LEFT CLINICAL INFORMATION: severe trigger finger of the middled finger of the left hand COMPARISON: None available. TECHNIQUE: PA, lateral, and oblique views of the left hand. FINDINGS: No acute cortical disruption or malalignment. No lytic or blastic lesions. No soft tissue calcifications. No metallic or radiopaque foreign body. No bony erosions. Preservation of the joint spaces. XR/XR hand LT min 3V IMPRESSION: Normal x-ray, left hand. Electronically signed by: Jaime Bell MD 12/02/2024 12:31 PM EDT
--- OUTSIDE RECORDS SUMMARY | 2024-12-02 09:15 | XMS_ITS | Encounter Summary ---
Author Organization [employer] Address [address] [facility] 7t [place] [address] Care Team Providers Care Civil Engineer In Training Name Role Phone Sukhdeep Paul MD Primary Care Provider [phone] Reason for Referral * Consultation (Routine) - Authorized Specialty Diagnoses / Procedures Referred By Contac t Referred To Contact Nutrition Diagnoses Prediabetes Sukhdeep Paul MD [address] [place] [address] Phone: tel: fax: Referral ID Status Reason Start Date Expiration Date Visits Requested Visits Authorized [id number] Authorized Consult and Treat 12/02/2024 12/02/2025 1 1 * Consultation (Routine) - Pending Review Specialty Diagnoses / Procedures Referred By Contac t Referred To Contact Hand Surgery Diagnoses Trigger finger of left hand, unspecified finger Sukhdeep Paul MD [address] [place] [address] Phone: tel: fax: Referral ID Status Reason Start Date Expiration Date Visits Requested Visits Authorized [id number] Pending Review Specialty Services Required 12/02/2024 12/02/2025 1 1 * Imaging (Routine) - Authorized Specialty Diagnoses / Procedures Referred By Contac t Referred To Contact Radiology Diagnoses Encounter for screening mammogram for malignant neoplasm of breast Procedures BI Mammogram Screening Tomosynthesis Bilateral Sukhdeep Paul MD [address] [place] [address] Phone: tel: fax: [facility] [address] [place] [address] Phone: tel: fax: Referral ID Status Reason Start Date Expiration Date V isits Requested Visits Authorized [id number] Authorized 12/02/2024 12/02/2025 1 1 Reason for Visit * Reason Comments Follow-up Encounter Details Date Type Department Care Team (Late st Contact Info) Description 12/02/2024 9:15 AM EDT Office Visit [facility] [address] [place] [address] Sukhdeep Paul MD [address] [place] [address] Hypertension, unspecified type (Primary Dx); Trigger finger of left hand, unspecified finger; Prediabetes; Encounter for screening mammogram for malignant neoplasm of breast Social History Tobacco Use Types Packs/Day Years Used Date Smoking Tobacco: Former Cigarettes Q uit: 10/15/2023 Smokeless Tobacco: Never Tobacco Cessation:Counseling Given: Not Answered Alcohol Use Standard Drinks/Week Comments Not Currently 5 (1 standard drink = 0.6 oz pur e alcohol) occassional Alcohol Answer Date Recorded How often do you have a drink containing alcohol ? 2 12/02/2024 How many drinks containing a lcohol do you have on a typical day when you are drinking? 0 12/02/2024 How often do you have six or more drinks on one occasion? 0 12/02/2024 Depression Answer Date Recorded Patient Health Questionnaire-9 [...] AM EDT documented as of this encounter Last Filed Vital Signs Vital Sign Reading Time Taken Comments Blood Pressure 137/75 12/02/2024 9:44 AM EDT Pulse 87 12/02/2024 9:16 AM EDT Temperature 36.4 C (97.5 F) 12/02/2024 9:16 AM EDT Respiratory Rate 18 12/02/2024 9:16 AM EDT Oxygen Saturation 99% 12/02/2024 9:16 AM EDT Inhaled Oxygen Concentration - - Weight 76.4 kg (168 lb 6.4 oz) 12/02/2024 9:16 A M EDT Height 157.5 cm (5' 2 ) 12/02/2024 9:16 AM EDT Body Mass Index 30.8 12/02/2024 9:16 AM EDT documented in this encounter Progress Notes * Sukhdeep Paul MD - 12/02/2024 9:15 AM EDT Subjective Patient ID: Lesley Obando is a 54 y.o. female who presents for Follow-up. Patient comes for a follow-up visit. She is asymptomatic. She is using losartan daily for hypertension. She quit smoking several months ago and she is congratulated. We discussed results of recent blood work. Her ASCVD risk for the next 10 years is less than 7.5%. I did not recommend a statin at this point. She is prediabetic and she eats plenty of sweets and we discussed the importance of avoiding sweets and soda and regular physical exertion to prevent diabetes. She agreed with referral to a manager med surg. I did recommend that she repeat her mammogram. Review of Systems Constitutional: Negative for chills and fever. HENT: Negative for sore throat. Respiratory: Negative for cough, shortness of breath and wheezing. Cardiovascular: Negative for chest pain, palpitations and leg swelling. Gastrointestinal: Negative for abdominal pain. Musculoskeletal: Patient is having a a lot of problems with trigger finger of the middle finger of the left hand. Her finger has been getting stuck in a flexed position and is quite tender to dislodge Objective Vitals: 12/02/24 0916 BP: (!) 146/78 BP Location: Left arm Patient Position: Sitting BP Cuff Size: Adult Pulse: 87 Resp: 18 Temp: 97.5 ??F (36.4 ??C) TempSrc: Temporal SpO2: 99% Weight: 168 lb 6.4 oz (76.4 kg) Height: 5' 2 (1.575 m) Physical Exam Constitutional: Appearance: Normal appearance. Cardiovascular: Rate and Rhythm: Normal rate and regular rhythm. Heart sounds: No murmur heard. No gallop. Pulmonary: Effort: Pulmonary effort is normal. No respiratory distress. Breath sounds: Normal breath sounds. No wheezing. Musculoskeletal: General: No swelling. Right lower leg: No edema. Left lower leg: No edema. Neurological: Mental Status: She is alert. Latest Reference Range & Units 11/24/24 08:28 Glucose 60 - 115 mg/dL 98 Urea Nitrogen (BUN) 9 - 16 mg/dL 14 Creatinine, Serum 0.5 - 1.4 mg/dL 0.64 Sodium 135 - 145 mmol/L 142 Potassium 3.3 - 5.1 mmol/L 4.0 Chloride 96 - 108 mmol/L 108 Carbon Dioxide 22 - 29 mmol/L 27 Calcium 8.4 - 10.2 mg/dL 8.9 Albumin Level 3.5 - 5.0 g/dL 4.0 Bilirubin, Total 0.0 - 1.0 mg/dL 0.3 AST 5 - 31 U/L 25 ALT 0 - 31 U/L 23 Anion Gap 12 - 20 11 (L) Total Protein 6.5 - 8.0 g/dL 6.8 Cholesterol <200 mg/dL 243 (H) HDL Cholesterol >40 mg/dL 53 LDL Cholesterol Calculated <100 mg/dL 124 (H) Triglycerides <150 mg/dL 331 (H) Red Blood Count 4.20 - 5.50 X10*6/uL 5.09 Hemoglobin 12.0 - 16.0 g/dl 12.8 Hematocrit 37.0 - 47.0 % 40.2 Mean Corpuscular Volume 80.0 - 98.0 fL 79.0 (L) Mean Corpuscular Hemoglobin 27.0 - 33.0 pg 25.1 (L) Mean Corpuscular HGB Conc 31.0 - 35.0 g/dl 31.8 Red Cell Distribution Width 11.0 - 16.0 % 15.4 Platelet Count 160 - 400 X10*3/uL 220 Eosinophils Percent Auto 0 - 4 % 3.9 Lymphocytes Absolute Auto 1.2 - 4.9 X10*3/uL 1.7 Basophils Absolute Auto 0.0 - 0.2 X10*3/uL 0.0 Monocytes Absolute Auto 0.1 - 1.2 X10*3/uL 0.6 Neutrophils Absolute Auto 2.0 - 8.3 x10*3/uL 3.1 Neutrophils Percent Auto 45 - 73 % 54.8 Basophils Percent Auto 0 - 2 % 0.5 Eosinophils Absolute Auto 0.0 - 0.4 X10*3/uL 0.2 Lymphocytes Percent Auto 20 - 40 % 29.8 Monocytes Percent Auto 2 - 11 % 10.6 Imm Gran Abs Auto 0.00 - 0.03 X10*3/uL 0.02 Imm Gran Pct Auto 0.0 - 0.4 % 0.4 Hemoglobin A1c <6.0 % 6.0 Alkaline Phosphatase 39 - 117 U/L 86 ESTIMATED AVERAGE GLUCOSE mg/dL 126 Estimated Glomerular Filt Rate >60 Mean Platelet Volume 9.4 - 12.3 fL 12.1 NRBC Abs Auto 0.0 - 0.012 X10*3/uL 0.000 NRBC Pct Auto 0.0 - 0.2 /100WBC 0.0 White Blood Count 4.8 - 10.8 X10*3/uL 5.7 (L): Data is abnormally low (H): Data is abnormally high Assessment/Plan Diagnoses and all orders for this visit: Hypertension, unspecified type Comments: Continue current dose of losartan, regular physical activity, avoid salty foods, check BP at home, follow-up televisit with team nurses in 10 days Trigger finger of left hand, unspecified finger Comments: Referral to hand surgery. X-ray of the left hand prior to hand surgery evaluation Orders: - XR Hand 3+ Views Left; Future - Referral to Hand Surgery; Future Prediabetes Comments: Encouraged to avoid sweets and soda, walk after meals, referral to manager med surg Orders: - Referral to Nutrition Therapy; Future Encounter for screening mammogram for malignant neoplasm of breast Comments: Patient is due for repeat mammogram and she was referred. Mammogram last year was BI-RADS 1 in July Orders: - BI Mammogram Screening Tomosynthesis Bilateral; Future Future Appointments Date Time Provider Department Center 05/26/2025 3:00 PM Cordelia Uriarte [facility] documented in this encounter Plan of Treatment Upcoming Encounters Date Type Department Care Team (Late st Contact Info) Description 12/16/2024 10:00 AM EDT Telemedicine [facility] [address] [place] [address] 01/01/2025 2:15 PM EDT Office Visit [facility] [address] [place] [address] Cordelia Uriarte [address] [place] [address] Scheduled Orders Name Type Priority Associated Diagnoses Orde r Schedule BI Mammogram Screening Tomosynthesis Bilateral Imaging Routine Encounter for screening mammogram for malignant neoplasm of breast Expected: 12/02/2024, Expires: 02/01/2026 Scheduled Referrals Name Type Priority Associated Diagnoses Orde r Schedule Referral to Hand Surgery Outpatient Referral Routine Trigger finger of left hand, unspecified finger Expected: 12/02/2024 (Approximate), Expires: 12/02/2025 Referral to Nutrition Therapy Outpatient Referral Routine Prediabetes Expected: 12/02/2024 (Approximate), Expires: 12/02/2025 documented as of this encounter Procedures Procedure Name Priority Date/Time Associated Diagnosis Comments XR HAND 3+ VIEWS LEFT Routine 12/02/2024 12:23 PM EDT Trigger finger of left hand, unspecified finger documented in this encounter Results * XR Hand 3+ Views Left (12/02/2024 12:23 PM EDT) Anatomical Region Laterality Modality Upper Extremities, Hand Left Radiogra phic Imaging 12/02/2024 12:2 3 PM EDT Narrative 12/02/2024 12:34 PM EDT [address] [address] XRay Report Signed Patient: Lesley Barraza I MR#: [id number] : 1970 Acct:[id number] Age/Sex: 54 / F ADM Date: 12/02/24 [facility] Attending Dr: Sukhdeep Paul MD Ordering Physician: Sukhdeep Paul MD Date of Service: 12/02/24 Procedure(s): XR hand LT min 3V Accession Number(s): [id number] cc: Sukhdeep Paul MD Reason for Exam: severe trigger finger of the middled finger of the left hand EXAMINATION: XR HAND, LEFT CLINICAL INFORMATION: severe trigger finger of the middled finger of the left hand COMPARISON: None available. TECHNIQUE: PA, lateral, and oblique views of the left hand. FINDINGS: No acute cortical disruption or malalignment. No lytic or blastic lesions. No soft tissue calcifications. No metallic or radiopaque foreign body. No bony erosions. Preservation of the joint spaces. XR/XR hand LT min 3V IMPRESSION: Normal x-ray, left hand. Electronically signed by: Jaime Bell MD 12/02/2024 12:31 PM EDT Dictated By: Jaime Burt MD Signed By: <Electronically signed by Jaime Sheldon MD in OV> 12/02/24 1231 DD/ 1223 TD/TT: 12/02/24 1224 Release Engineer: Procedure Note Donotuseinterpreter, Image - 12/02/[address] [address] XRay Report Signed Patient: Lesley Barraza IMR#: [id number] : 1970Acct:[id number] Age/Sex: 54 / FADM Date: 12/02/24 [facility] Att[facility]: Sukhdeep Paul MD Ordering Physician: Sukhdeep Paul MD Date of Service: 12/02/24 Procedure(s): XR hand LT min 3V Accession Number(s): [id number] cc: Sukhdeep Paul MD Reason for Exam: severe trigger finger of the middled finger of the lefthand EXAMINATION: XR HAND, LEFT CLINICAL INFORMATION: severe trigger finger of the middled finger of the left hand COMPARISON: None available. TECHNIQUE: PA, lateral, and oblique views of the left hand. FINDINGS: No acute cortical disruption or malalignment. No lytic or blastic lesions. No soft tissue calcifications. No metallic or radiopaque foreign body. No bony erosions. Preservation of the joint spaces. XR/XR hand LT min 3V IMPRESSION: Normal x-ray, left hand. Electronically signed by: Jaime Bell MD 12/02/2024 12:31 PM EDT Dictated By: Jaime Burt MD Signed By: <Electronically signed by Jaime Sheldon MDin OV> 12/02/24 1231 DD/ 1223 TD/TT: 12/02/24 1224 Release Engineer: Sukhdeep Paul MD IMG XR PROCEDURES Edited Result - Final documented in this encounter Visit Diagnoses Diagnosis Hypertension, unspecified type- Primary Trigger finger of left hand, unspecified finger Prediabetes Other abnormal glucose Encounter for screening mammogram for malignant neoplasm of breast documented in this encounter Additional Health Concerns Assessment Noted Time PHQ-9 Depression Total Score: 5 08/13/19 25 3:07 PM EDT documented as of this encounter Care Teams Civil Engineer In Training Relationship Specialty Start Date End Date Sukhdeep Paul MD [address] [place] [address] PCP - General Internal Medicine 06/02/22 documented as of this encounter
--- OUTSIDE RECORDS SUMMARY | 2024-12-02 13:24 | XMS_ITS | Encounter Summary ---
Author Organization [employer] Address [address] [facility] 7t [place] [address] Care Team Providers Care Director Medical Economics Name Role Phone NameSukhdeep MD Primary Care Provider [phone] Reason for Visit * Reason Onset Date Comments Medication Question 06/05/2024 Encounter Details Date Type Department Care Team ([facility] st Contact Info) Description 06/05/2024 Telephone [facility] [address] [place], [place] [phone] Name, MD Sukhdeep [address] [place], [place] [phone] Medication Question Social History Tobacco Use Types [...] the past 12 months, has t he [employer] gas, oil or water company threatened to [...] verbal consent from GIANNI Gregory to call [facility] pharmacy and request metro gel Rx from 06/04/24 to be reactivated and to cancel PO Kristie Rodriguez in [facility] pharmacy verbalized understanding and will fill [...] would prefer the Gel. Contact pt at [phone] documented in this encounter Plan of Treatment Upcoming Encounters Date Type Department Care Team (Late st Contact Info) Description 12/16/2024 10:00 AM EDT Telemedicine [facility] [address] [place] [address] 01/01/2025 2:15 PM EDT Office Visit [facility] [address] [place] [address] Cordelia Uriarte [address] [place] [address] documented as of this encounter Visit Diagnoses Not on filedocumented in this encounter Additional Health Concerns Assessment Noted Time PHQ-9 Depression Total Score: 0 07/30/19 24 1:52 PM EDT documented as of this encounter Care Teams Director Medical Economics Relationship Specialty Start Date End Date Name, MD Sukhdeep [address] [place] [address] PCP - General Internal Medicine 06/02/22 documented as of this encounter
--- OUTSIDE RECORDS SUMMARY | 2024-12-02 13:25 | XMS_ITS | Encounter Summary ---
Author Organization [employer] Address [address] [facility] 7t [place] [address] Care Team Providers Care Manager Business Information Name Role Phone NameSukhdeep MD Primary Care Provider [phone] Reason for Visit * Reason Onset Date Comments Chart Prep 11/28/2024 Encounter Details Date Type Department Care Team ([facility] st Contact Info) Description 11/28/2024 Telephone [facility] [address] [place], [place] [phone] Name, MD Sukhdeep [address] [place], [place] [phone] Chart Prep Social History Tobacco Use Types Packs/Day Years [...] encounter Miscellaneous Notes * Telephone Encounter - Dahiana Aquino [place] - 11/28/2024 9:43 AM EDT Chart Prep Labs: done from 11/24/24 Images: done from 06/03/24 Referrals: Radiology - Complete, notes in chart. Vaccines due: Covid, Flu, and Zoster Screenings: mammogram Overdue care gaps: SBIRT and Tobacco documented in this encounter Plan of Treatment Upcoming Encounters Date Type Department Care Team (Late st Contact Info) Description 12/16/2024 10:00 AM EDT Telemedicine [facility] [address] [place] [address] 01/01/2025 2:15 PM EDT Office Visit [facility]ULT DENT[facility] [address] [place] [address] Cordelia Uriarte [address] [place] [address] documented as of this encounter Visit Diagnoses Not on filedocumented in this encounter Additional Health Concerns Assessment Noted Time PHQ-9 Depression Total Score: 5 08/13/19 25 3:07 PM EDT documented as of this encounter Care Teams Manager Business Information Relationship Specialty Start Date End Date Name, MD Sukhdeep [address] [place] [address] PCP - General Internal Medicine 06/02/22 documented as of this encounter
--- OUTSIDE RECORDS SUMMARY | 2024-12-02 13:25 | XMS_ITS | Encounter Summary ---
Author Organization [employer] Address [address] [facility] 7t [place] [address] Care Team Providers Care Forestry Aid Name Role Phone Name, Sukhdeep [place] Primary Care Provider [phone] Encounter Details Date Type Department Care Team (Latest Contact Info) Description 12/02/2024 Travel Social History Tobacco Use Types Packs/Day Years [...] Info) Description 12/16/2024 10:[address] [facility] [address] [place] [address] 01/01/2025 2:15 PM EDT Office Visit [facility] [address] [place] [address] KalaniCordelia [address] [place] [address] documented as of this encounter Visit Diagnoses Not on filedocumented in this encounter Additional Health Concerns Assessment Noted Time PHQ-9 Depression Total Score: 5 08/13/19 25 3:07 PM EDT documented as of this encounter Care Teams Forestry Aid Relationship Specialty Start Date End Date Name, MD Sukhdeep [address] [place] [address] PCP - General Internal Medicine 06/02/22 documented as of this encounter
--- OUTSIDE RECORDS SUMMARY | 2024-12-02 13:25 | XMS_ITS | Encounter Summary ---
Author Organization [employer] Address [address] [facility] [address] [place] [address] Care Team Providers Care Winterizer Name Role Phone Name, Sukhdeep [place] Primary Care Provider [phone] Reason for Visit * Reason Comments Med Refill Encounter Details Date Type Department Care Team ([facility] st Contact Info) Description 05/28/2023 Refill [facility] [address] [place] [phone] Grabiel Smith MD [address] [place], [place] [phone] Social History Tobacco Use Types Packs/Day Years [...] Info) Description 12/16/2024 10:00 AM EDT Telemedicine [facility] [address] [place] [address] 01/01/2025 2:15 PM EDT Office Visit [facility] ADULT [facility] [address] [place] [address] Cordleia Uriarte [address] [place] [address] documented as of this encounter Visit Diagnoses Not on filedocumented in this encounter Additional Health Concerns Assessment Noted Time PHQ-9 Depression Total Score: 0 07/12/19 9:22 AM EDT documented as of this encounter Care Teams Winterizer Relationship Specialty Start Date End Date Name, MD Sukhdeep [address] [place] [address] PCP - General Internal Medicine 06/02/22 documented as of this encounter
--- OUTSIDE RECORDS SUMMARY | 2024-12-02 13:25 | XMS_ITS | Clinical Summary ---
Author Organization [employer] Address [address] [facility] 7t [place] [address] Care Team Providers Care Disbursing Officer Name Role Phone Name, Sukhdeep AUSTIN Primary Care Provider [phone] Allergies Active Allergy Reactions Criticality Noted Date [...] Encounters Date Type Department Care Team Description 12/02/2024 9:15 AM EDT Office Visit [facility] [address] [place] [phone] Name, MD Sukhdeep Hypertension, unspecified type (Primary Dx); Trigger finger of left hand, unspecified finger; Prediabetes; Encounter for screening mammogram for malignant neoplasm of breast 12/02/2024 Travel 11/28/2024 Telephone [facility] [address] [place] [address] Name, MD Sukhdeep Chart Prep from Last 3 Months Immunizations Immunization Administration [...] Mass Index 30.8 12/02/2024 9:16 AM EDT Plan of Treatment Upcoming Encounters Date Type Department Care Team (Late st Contact Info) Description 12/16/2024 10:00 AM EDT Telemedicine [facility] [address] [place] [address] 01/01/2025 2:15 PM EDT Office Visit [facility] ADULT DENTAL [address] [place] [address] Cordelia Uriarte [address] [place] [address] Health Maintenance Due Date Last Done Comments CT Colonography 1972 FIT DNA/Cologuard 1972 FIT 1972 FOBT 1970 Sigmoidoscopy 1970 Family Planning (PISQ) 02/19/1987 Zoster Vaccines (1 of 2) 02/19/2022 Dental Oral Exam 05/16/2024 11/13/2023, 07/28/2022 Mammogram 08/08/2024 08/09/2023, 06/17, 07/03/2022, Additional history exists Dental X-Ray: Bitewings 11/13/2024 11/13/2023, 07/28 COVID-19 Vaccine ( season) 2024 03/29/2021, 04/22/2020, 03/25/2020 Influenza Vaccine (#1) 2024 9, 04/06/2016, 02/22/2015, Additional history exists Dental Prophylaxis 11/21/2024 05/20/2024, 0 11/13/2023, 07/28/2022 Dental X-Ray: Full Mouth 07/29/2025 07/28/2022 SDOH Screening 08/04/2025 08/04/2024 Depression Screening 08/12/2025 08/12/2024, 08/13/19 25 Disability Screening 08/12/2025 08/12/2024 Diabetes: Hemoglobin A1C 11/24/2025 025, 07/17/2023, 07/11/2022, Additional history exists Alcohol/Substance Use Screening 12/02/2025 12/02/2024 Tobacco Screening 12/02/2025 12/02/2024 Cervical Cancer Screening 11/16/2026 HPV/Cotest 11/16/2026 11/16/2021 Pap Smear 11/16/2026 11/16/2021 Lipid Panel 11/24/2029 11/24/2024, 06/19, 07/11/2022, Additional history exists DTaP/Tdap/Td Vaccines (3 - Td or Tdap) [...] Trigger finger of left hand, unspecified finger HEMOGLOBIN A1C Routine 11/24/2024 8:28 AM EDT Prediabetes Weight gain LIPID PANEL, STANDARD Routine 11/24/2024 8:28 AM EDT Prediabetes Weight gain COMPREHENSIVE METABOLIC PANEL Routine 11/24/2024 8:28 AM EDT Prediabetes Weight gain CBC WITH AUTO DIFFERENTIAL Routine 11/24/2024 8:28 AM EDT Prediabetes Weight gain HEPATITIS C AB W/REFL TO HCV RNA, [...] TOMOSYNTHESIS BILATERAL Routine 08/09/2023 4:03 PM EDT INTRAORAL - COMPLETE SERIES OF RADIOGRAPHIC IMAGES Routine 07/28/2022 1:00 PM EDT Periodontal disease Dental calculus Localized gingival recession THINPREP IMAGING PAP AND HPV MRNA E6/E7 WITH REFLEX TO HPV 16,18/45 Routine 11/16/2021 10:40 AM EDT from Last 3 Months or Most Recently Relevant to Health Maintenance Results * XR Hand 3+ Views Left (12/02/2024 12:23 PM EDT) Anatomical Region Laterality Modality Upper Extremities, Hand Left Radiogra phic Imaging 12/02/2024 12:2 3 PM EDT Narrative 12/02/2024 12:34 PM EDT [address] [address] XRay Report Signed Patient: Lesley Barraza I MR#: [id number] : 1970 Acct:[id number] Age/Sex: 54 / F ADM Date: 12/02/24 Loc: HO.HHCX Attending Dr: Sukhdeep Paul MD Ordering Physician: Sukhdeep Paul MD Date of Service: 12/02/24 Procedure(s): XR hand LT min 3V Accession Number(s): [id number] cc: Sukhdeep Paul MD Reason for Exam: [...] Jaime Bell MD 12/02/2024 12:31 PM EDT RP Dictated By: Jaime Burt MD Signed By: <Electronically signed by Jaime Sheldon MD in OV> 12/02/24 1231 DD/ 1223 TD/TT: 12/02/24 1224 Sponge Buffer: Procedure Note Donotuseinterpreter, Image - 12/02/2024 [place] [address] XRay Report Signed Patient: Lesley Barraza IMR#: [id number] : 1970Acct:[id number] Age/Sex: 54 / FADM Date: 12/02/24 Loc: HO.HHCX Attending Dr: Sukhdeep Paul MD Ordering Physician: Sukhdeep Paul MD Date of Service: 12/02/24 Procedure(s): XR hand LT min 3V Accession Number(s): [id number] cc: Sukhdeep Paul MD Reason for Exam: [...] Jaime Bell MD 12/02/2024 12:31 PM EDT RP Dictated By: Jaime Burt MD Signed By: <Electronically signed by Jaime Sheldon MDin OV> 12/02/24 1231 DD/ 1223 TD/TT: 12/02/24 1224 Sponge Buffer: us Sukhdeep Name IMG XR PROCEDURES Edited Result - Final * (ABNORMAL) CBC auto differential (11/24/2024 8:28 AM EDT) White Blood Count 5.7 4.8 - 10.8 X10*3/uL [facility] Red Blood Count 5.09 4.20 - 5.50 X10*6/uL [facility] Hemoglobin 12.8 12.0 - 16.0 g/dl [facility] Hematocrit 40.2 37.0 - 47.0 % [facility] Mean Corpuscular Volume 79.0(L) 80.0 - 98.0 fL [facility] Mean Corpuscular Hemoglobin 25.1(L) 27.0 - 33.0 pg [facility] Mean Corpuscular HGB Conc 31.8 31.0 - 35.0 g/dl [facility] Red Cell Distribution Width 15.4 11.0 - 16.0 % [facility] Platelet Count 220 160 - 400 X10*3/uL [facility] Mean Platelet Volume 12.1 9.4 - 12.3 fL [facility] Neutrophils Percent Auto 54.8 45 - 73 % [facility] Imm Gran Pct Auto 0.4 0.0 - 0.4 % [facility] Lymphocytes Percent Auto 29.8 20 - 40 % [facility] Monocytes Percent Auto 10.6 2 - 11 % [facility] Eosinophils Percent Auto 3.9 0 - 4 % [facility] Basophils Percent Auto 0.5 0 - 2 % [facility] NRBC Pct Auto 0.0 0.0 - 0.2 /100WBC [facility] Neutrophils Absolute Auto 3.1 2.0 - 8.3 x10*3/uL [facility] Imm Gran Abs Auto 0.02 0.00 - 0.03 X10*3/uL [facility] Lymphocytes Absolute Auto 1.7 1.2 - 4.9 X10*3/uL [facility] Monocytes Absolute Auto 0.6 0.1 - 1.2 X10*3/uL [facility] Eosinophils Absolute Auto 0.2 0.0 - 0.4 X10*3/uL [facility] Basophils Absolute Auto 0.0 0.0 - 0.2 X10*3/uL [facility] NRBC Abs Auto 0.000 0.0 - 0.012 X10*3/uL [facility] Blood Venous blood specimen / Unknown 11/24/2024 8:28 AM EDT 11/24/2024 11:16 AM EDT us Sukhdeep Paul MD LAB BLOOD ORDERABLES Final Resul t [facility] [address] [place] [phone] * Hemoglobin A1c (11/24/2024 8:28 AM EDT) Hemoglobin A1c 6.0 <6.0 % [facility] Comment:Hemoglobin A1C Refer ence Range Adults: 4.8 - 6.0 % Non diabetic: < 6.0 % Goal: < 7.0 %Additional Action Suggested: > 8.0 %Note: Hemoglobin A1c results are invalid for patients with abnormal amounts of HbF. Blood transfusions may impact the HbA1c concentration in the patient sample. Estimated Average Glucose 126 mg/dL [facility] Comment:eAG = Estimated ave rage glucose which is %A1C expressed asaverage glucose, using the formula of the B7Y-PrlerozTstecpm Glucose study (ADAG), Diabetes Care, Vol.31,#8,Oct. 2007 Blood Venous blood specimen / Unknown 11/24/2024 8:28 AM EDT 11/24/2024 11:16 AM EDT us Sukhdeep Paul MD LAB BLOOD ORDERABLES Final Resul t Performing Organization Address City/[facility]/ZIP Co de Phone Number [facility] [address] [place] [address] [phone] * (ABNORMAL) Lipid Panel, Standard (11/24/2024 8:28 AM EDT) Triglycerides 331(H) <150 mg/dL [facility] Comment:Desirable Triglyceri de: less than 150 mg/dLBorderline High Triglyceride 150-199 mg/dLHigh Triglyceride: 200-499 mg/dLVery High Triglyceride: greater than or equal to 5OO mg/dL Cholesterol 243(H) <200 mg/dL [facility] Comment:Desirable Cholestero l: less than 200 mg/dLBorderline High Cholesterol: 200-239 mg/dLHigh Cholesterol: greater than 239 mg/dL LDL Cholesterol Calculated 124(H) <100 mg/dL [facility] Comment:Desirable LDL: less than 100 mg/dLNear Optimal/Above Optimal LDL: 110- 129 mg/dLBorderline High LDL: 130-159 mg/dLHigh LDL: 160-189 mg/dLVery High LDL: greater than or equal to 190 mg/dL HDL Cholesterol 53 >40 mg/dL [facility] Comment:Desirable HDL: great er than 40 mg/dL Note: This HDL assay may give artificially low results in patients with liver disease. Blood Venous blood specimen / Unknown 11/24/2024 8:28 AM EDT 11/24/2024 11:16 AM EDT Sukhdeep Paul MD LAB BLOOD ORDERABLES Final Resul t Performing Organization Address City/[facility]/ZIP Co de Phone Number [facility] [address] [place] [address] [phone] * (ABNORMAL) Comprehensive Metabolic Panel (11/24/2024 8:28 AM EDT) Sodium 142 135 - 145 mmol/L [facility] Potassium 4.0 3.3 - 5.1 mmol/L [facility] Chloride 108 96 - 108 mmol/L [facility] Carbon Dioxide 27 22 - 29 mmol/L [facility] Anion Gap 11(L) 12 - 20 [facility] Urea Nitrogen (BUN) 14 9 - 16 mg/dL [facility] Creatinine, Serum 0.64 0.5 - 1.4 mg/dL [facility] Estimated Glomerular Filt Rate >60 [facility] Comment:Chronic Kidney Disea se: Estimated GFR < 60 mL/min/1.32v2Eqvdmi Kidney Disease: Estimated GFR < 15 mL/min/1.73m2 Glucose 98 60 - 115 mg/dL [facility] Calcium 8.9 8.4 - 10.2 mg/dL [facility] Bilirubin, Total 0.3 0.0 - 1.0 mg/dL [facility] Aspartate Amino Transferase 25 5 - 31 U/L [facility] Alanine Aminotransferase 23 0 - 31 U/L [facility] Total Protein 6.8 6.5 - 8.0 g/dL [facility] Albumin Level 4.0 3.5 - 5.0 g/dL [facility] Alkaline Phosphatase 86 39 - 117 U/L [facility] Blood Venous blood specimen / Unknown 11/24/2024 8:28 AM EDT 11/24/2024 11:16 AM EDT Sukhdeep Paul MD LAB BLOOD ORDERABLES Final Resul t [facility] [address] [place] [phone] * Hepatitis C Antibody with Reflex to HCV, RNA, Quantitative, Real-Time PCR (06/03/2024 1:53 PM EDT) Hepatitis C Antibody Nonreactive Nonreactive [facility] Comment:Antibodies to HCV no t detected; does not exclude early acuteHCV infection. Blood Venous blood specimen / Unknown 06/03/2024 1:53 PM EDT 06/03/2024 4:18 PM EDT Laure Gregory [facility] LAB BLOOD ORDERABLES Christy l Result Performing Organization Address City/[facility]/ZIP Co de Phone Number [facility] [address] [place] [phone] * HIV-1/2 Antigen and Antibodies, Fourth Generation, with Reflexes (06/03/2024 1:53 PM EDT) HIV AB/AG Nonreactive Nonreactive [facility] Comment:HIV-1 p24 Ag and/or HIV-1/HIV-2 Ab not detected.A test result that is nonreactive does not exclude thepossibility of exposure to or infection with HIV-1 and/orHIV-2. Nonreactive results in this assay for individualswith prior exposure to HIV-1 and/or HIV-2 may be due toantigen and antibody levels that are below the limit ofdetection of this assay.The [employer] HIV Ag/Ab Combo assay result andsupplemental assay results should be interpreted inconjunction with the patient's clinical presentation,history and other laboratory results. If the results areinconsistent with clinical evidence, additional testing issuggested to confirm the result. Blood Venous blood specimen / Unknown 06/03/2024 1:53 PM EDT 06/03/2024 4:18 PM EDT Laure Gregory [facility] LAB BLOOD ORDERABLES Christy l Result Performing Organization Address City/[facility]/ZIP Co de Phone Number [facility] [address] [place] [phone] * Hm Colonoscopy (03/06/2024 9:11 AM EST) Colonoscopy Normal Normal 03/06/2024 9:11 AM EST Sukhdeep Paul MD HEALTH MAINTENANCE Final Result * BI Mammogram Screening Tomosynthesis Bilateral (08/09/2023 4:03 PM EDT) Anatomical Region Laterality Modality Breast Bilateral Mammography 08/09/2023 4:03 PM EDT Narrative 08/31/2023 6:12 AM EDT [address] [place] [address] Mammography Report Signed Patient: Lesley Barraza I MR#: [id number] : 1970 Acct:[id number] Age/Sex: 53 / F ADM Date: 08/09/23 Loc: HO.MAMMO Attending Dr: Sukhdeep Paul MD Ordering Physician: Sukhdeep Paul MD Results: 1Negative Date of Service: 08/09/23 Follow Up: 1 Year From Orig inal Mammogram Procedure(s): MM tomosynthesis screening BI Accession Number(s): [id number] cc: Sukhdeep Paul MD EXAMINATION: MM SCREENING [...] in OV> 08/31/23 0609 DD/ 1603 TD/TT: Sponge Buffer: Procedure Note Donotuseinterpreter, Image - 08/31/[address] [place] [address] Mammography Report Signed Patient: Lesley Barraza IMR#: [id number] : 1970Acct:[id number] Age/Sex: 53 / FADM Date: 08/09/23 Loc: HO.MAMMO Attending Dr: Sukhdeep Paul MD Ordering Physician: Sukhdeep Paul MDResults: 1Negative Date of Service: 08/09/23Follow Up: 1 Year From Orig ina Mammogram Procedure(s): MM tomosynthesis screening BI Accession Number(s): [id number] cc: Sukhdeep Paul MD EXAMINATION: MM SCREENING [...] in OV> 08/31/23 0609 DD/ 1603 TD/TT: Sponge Buffer: Sukhdeep Paul MD [facility] BI PROCEDURES Edited Result - Final * THINPREP TIS PAP AND HPV mRNA [...] has been evaluated with computer assisted technology. [facility] Cytotechnologis t: SEE COMMENT [facility] Comment: GSG, CT(ASCP) CT screening location: [address] [address] HPV nRNA E6/E7 Not Detected Not Detected [facility] Comment: Methodology: Rehab Technician-Mediated Amplification This assay detects E6/E7 viral messenger RNA (mRNA) from 14 high-risk HPV types (16,18,31,33,35,39,45,51,52,56,58,59,66,68). Cervical sources are required for HPV testing. If a vaginal source from a patient who has had a total hysterectomy with removal of cervix was submitted, please contact the testing laboratory for alternative testing options. For additional information, please refer to http://education.[employer]/faq/UKN021y8 (This link if provided for information/ educational purposes only.) Interpretation/ Result: Negative for intraepithelial lesion or malignancy. [facility] LMP: 11/07/21 [facility] Prev. BX: NONE GIVEN [facility] Prev. PAP: 11/02 [facility] SOURCE: None given [facility] Statement Of Adequacy: SEE COMMENT [facility] Comment: Satisfactory for evaluation. Endocervical/transformation zone component present. 11/16/2021 10:4 0 AM EDT Laure [facility]Y ORDERABLES Final Result [facility] [address] from Last 3 Months or Most Recently Relevant to Health Maintenance [place] [id number] DENTAL - HSN PARTIAL (MEDICAID) DENTAL - [employer] DENTAL PPO Care Teams Disbursing Officer Relationship Specialty Start Date End Date Name, MD Sukhdeep [address] [place] [address] PCP - General Internal Medicine 06/02/22
--- OUTSIDE RECORDS SUMMARY | 2024-12-02 13:25 | XMS_ITS | Encounter Summary ---
Author Organization [employer] Address [address] [facility] 7t [place] [address] Care Team Providers Care Rotor Balancer Name Role Phone Name, Sukhdeep AUSTIN Primary Care Provider [phone] Encounter Details Date Type Department Care Team (Late st Contact Info) Description 09/05/2022 Abstract [facility] ADULT DENTAL [address] [place] [address] Cordelia Uriarte [address] [place] [address] Social History Tobacco Use Types Packs/Day Years [...] Info) Description 12/16/2024 10:00 AM EDT Telemedicine [facility] [address] [place], [place] [phone] 01/01/2025 2:15 PM EDT Office Visit [facility] [address] [place], [place] [phone] Cordelia Uriarte [address] [place] [address] documented as of this encounter Visit Diagnoses Not on filedocumented in this encounter Additional Health Concerns Assessment Noted Time PHQ-9 Depression Total Score: 0 07/12/19 23 9:22 AM EDT documented as of this encounter Care Teams Rotor Balancer Relationship Specialty Start Date End Date Name, MD Sukhdeep [address] [place] [address] PCP - General Internal Medicine 06/02/22 documented as of this encounter
--- OUTSIDE RECORDS SUMMARY | 2024-12-02 13:25 | XMS_ITS | Encounter Summary ---
Author Organization [employer] [facility] Address [address] [facility] 7t [place] [address] Care Team Providers Care Cover Seamer Name Role Phone Monica Chavez Primary Care Provider [phone] Sukhdeep Paul MD Primary Care Provider [phone] Encounter Details Date Type Department Care Team (Latest Contact Info) Description 12/11/2018 Abstract [facility] CONVERSIONS Dental, Provider, DDS Social [...] Care Team ( st Contact Info) Description 12/16/2024 10:00 AM EDT Telemedicine [facility] [address] [place] [address] 01/01/2025 2:15 PM EDT Office Visit [facility] ADULT DENTAL [address] [place] [address] Cordelia Uriarte [address] [place] [address] documented as of this encounter Visit Diagnoses Not on filedocumented in this encounter Care Teams Cover Seamer Relationship Specialty Start Date End Date Monica Chavez FNP [address] [place] [address] PCP - General Family Medicine 11/08/21 06/01/22 Name, MD Sukhdeep [address] [place] [phone] PCP - General Internal Medicine 06/02/22 documented as of this encounter
--- OUTSIDE RECORDS SUMMARY | 2024-12-02 13:25 | XMS_ITS | Encounter Summary ---
Author Organization [employer] [facility] Address [address] [facility] 7t [place] [address] Care Team Providers Care Garbage Collector Supervisor Name Role Phone Monica Chavez Primary Care Provider [phone] Sukhdeep Paul MD Primary Care Provider [phone] Encounter Details Date Type Department Care Team (Latest Contact Info) Description 04/05/2021 Abstract [facility] CONVERSIONS Dental, Provider, DDS Social History [...] 12/16/2024 10:00 AM EDT Telemedicine [facility] MEDICINE [address] [place] [address] 01/01/2025 2:15 PM EDT Office Visit [facility] ADULT DENTAL [address] [place] [address] Cordelia Uriarte [address] [place] [address] documented as of this encounter Visit Diagnoses Not on filedocumented in this encounter Care Teams Garbage Collector Supervisor Relationship Specialty Start Date End Date Monica Chavez FNP [address] [place] [address] PCP - General Family Medicine 11/08/21 06/01/22 Name, MD Sukhdeep [address] [place] [phone] PCP - General Internal Medicine 06/02/22 documented as of this encounter
--- OUTSIDE RECORDS SUMMARY | 2024-12-02 13:25 | XMS_ITS | Encounter Summary ---
Author Organization [employer] Address [address] [facility] 7t [place] [address] Care Team Providers Care Ornamental Iron Worker Helper Name Role Phone Name, Sukhdeep AUSTIN Primary Care Provider [phone] Encounter Details Date Type Department Care Team (Late Contact Info) Description 08/02/2022 Abstract [facility] ADULT DENTAL [address] [place], [place] [phone] Cordelia Uriarte [address] [place] [address] Social History Tobacco Use Types Packs/Day Years [...] Department Care Team (Late Contact Info) Description 12/16/2024 10:00 AM EDT Telemedicine [facility] [address] [place] [address] 01/01/2025 2:15 PM EDT Office Visit [facility] ADULT DENTAL [address] [place] [address] KalaniCordelia [address] [place] [address] documented as of this encounter Visit Diagnoses Not on filedocumented in this encounter Additional Health Concerns Assessment Noted Time PHQ-9 Depression Total Score: 0 07/12/19 9:22 AM EDT documented as of this encounter Care Teams Ornamental Iron Worker Helper Relationship Specialty Start Date End Date Name, MD Sukhdeep [address] [place] [address] PCP - General Internal Medicine 06/02/22 documented as of this encounter
== END 2024-12-02 10:16 | disposition home or self-care (01) ==
LOC: HO.HHCX 10:15
PROVIDERS: PCP Internal Medicine Geriatric Medicine; Visit Provider Internal Medicine Geriatric Medicine
DX: M65.332 Trigger finger, left middle finger (principal)
CPT/HCPCS: 73130

== ENCOUNTER → 2024-12-02 10:21 | Outpatient (BNV) | payer OTHER, SELFPAY | PROVIDERS: PCP Internal Medicine Geriatric Medicine; Visit Provider Radiology Diagnostic Radiology | DX: M65.332 Trigger finger, left middle finger (principal) | CPT/HCPCS: 73130 ==

== ENCOUNTER 2025-01-24 07:24 | Outpatient (REF) | payer OTHER, SELFPAY ==
--- OUTSIDE RECORDS SUMMARY | 2025-01-24 07:26 | XMS_ITS | Clinical Summary ---
Author Organization [employer] Address [address] [facility] 7t [place] [address] Care Team Providers Care School Speech Therapist Name Role Phone Name, Sukhdeep AUSTIN Primary Care Provider [phone] Allergies Active Allergy Reactions Criticality Noted Date Comments Acetaminophen Swelling,Shortness of breath High Oxycodone Swelling,Shortness of breath High Oxycodone-Acetaminophen Rash Low 07/17/2022 throat swelling Varicella Virus Vaccine Live 05/15/2012 Other reaction(s): LOCAL REACTION, RED RAISED ITCHY Medications Spacer/Aero-Hold ing Chambers [facility] miscIndications: Influenza-like symptoms 1 each every 4 (four) hours if needed (asthma). 1 each 3 Active nicotine (Nicoderm CQ) 14 MG/24HR patch Place 1 patch on the skin 1 (one) time each day at the same time. 42 patch 4 Active nicotine polacrilex (Commit) 2 MG lozenge Dissolve 1 lozenge (2 mg) in the mouth if needed for smoking cessation. 100 lozenge 4 Active Additional Information Patient not taking.Reported on 01/01/2025 famotidine (Pepcid) 20 MG tablet Take 1 tablet by mouth every 12 (twelve) hours. Active montelukast (Singulair) 10 MG tablet Take 1 tablet (10 mg) by mouth Once per day. 30 tablet 5 5 02/09/20 25 Active Additional Information Patient not taking.Reported on 01/01/2025 EPINEPHrine (Epipen) 0.3 MG/0.3ML injection syringeIndicatio ns:H/O allergic reaction Inject 0.3 mL (0.3 mg) as directed 1 (one) time if needed for anaphylaxis. Inject into upper leg. Call 911 after use. 2 each 5 08/14/19 Active albuterol 108 (90 Base) MCG/ACT inhalerIndicatio [...] replace cap. 16 g 12 5 08/13/19 Active fluticasone furoate (Arnuity Ellipta) 100 MCG/ACT inhaler Inhale 1 puff Once per day. Rinse mouth with water after use to reduce aftertaste and incidence of candidiasis. Do not swallow. 1 each 11 5 08/13/19 Active losartan (Cozaar) 25 MG tabletIndication s:Hypertension, unspecified type TAKE 1 TABLET BY MOUTH EVERY DAY 90 tablet 1 5 Active Active Problems Problem Noted Date Diagnosed Date control counseling 01/01/2025 Irregular menses 01/01/2025 Seasonal allergies 08/12/2024 Moderate persistent allergic asthma 08/12/2024 Dental caries 01/22/2024 Gingival bleeding 11/13/2023 Tobacco dependence 05/25/2023 Hypertension 04/10/2023 Periodontal disease 07/28/2022 Dental calculus 07/28/2022 Localized gingival recession 07/28/2022 Prediabetes 07/27/2022 Menorrhagia 07/11/2022 Metrorrhagia 07/11/2022 Anxiety 02/01/2012 Gastroesophageal reflux disease 09/14/2011 Encounters Date Type Department Care Team Description 01/01/2025 2:15 PM EDT Office Visit [facility] ADULT DENTAL [address] [place] [address] Cordelia Uriarte Periodontal disease (Primary Dx); Stage 3 grade B molar/incisor periodontitis per AAP/EFP 2017 classification; Dental calculus; Missing teeth, acquired; Tipped teeth; Crowded teeth; Localized gingival recession; Gingival bleeding 12/21/[address] [address] Sukhdeep Paul MD Hypertension, unspecified type 12/02/2024 9:15 AM EDT Office Visit [address] [address] Sukhdeep Paul MD Hypertension, unspecified type (Primary Dx); Trigger finger of left hand, unspecified finger; Prediabetes; Encounter for screening mammogram for malignant neoplasm of breast 12/02/2024 Travel 11/28/[address] [address] Sukhdeep Paul MD Chart Prep from Last 3 Months Immunizations Immunization Administration Dates Next Due Hep A, Adult 11/25/2012,05/02/2012 Hep B, adult 06/05/2024,01/28/2013,11/25/2012 Influenza injectable quadriv alent IIV4 with preservative 02/22/2015 Influenza injectable quadriv alent preservative free 12/23/2018,04/06/2016 Influenza, IIV3, injectable 02/11/2014,1 03/28/2010,01/20/2010,2008 Influenza, Injectable, MDCK, preservative free 01/02/2025 Influenza, Split (incl. mino fied surface antigen) [...] Sign Reading Time Taken Comments Blood Pressure 144/78 01/01/2025 2:05 PM EDT Pulse 88 01/01/2025 2:05 PM EDT Temperature 36.4 C (97.5 F) 12/02/2024 [...] Care Team (Late st Contact Info) Description 03/17/2025 2:00 PM EST Nutrition [facility] DIABETES/NUTRITION [address] [place] [address] Angela David, RD [address] [place] [address] 05/07/2025 2:15 PM EST Office Visit [facility] ADULT DENTAL [address] [place] [address] Kalani, Cordelia [address] [place] [address] Health Maintenance Due Date Last Done Comments CT Colonography 1972 FIT DNA/Cologuard 1972 FIT 1972 FOBT 1970 Sigmoidoscopy 1970 Family Planning (PISQ) 02/19/1987 Zoster Vaccines (1 of 2) 02/19/2022 Mammogram 08/08/2024 08/09/2023, 06/17, 07/03/2022, Additional history exists COVID-19 Vaccine ( season) 2024 03/29/2021, 04/22/2020, 03/25/2020 Dental Oral Exam 07/03/2025 01/01/2025, , 07/28/2022 Dental Prophylaxis 07/03/2025 01/01/2025, 0 05/20/2024, 11/13/2023, Additional history exists Dental X-Ray: Full Mouth 07/29/2025 07/28/2022 SDOH Screening 08/04/2025 08/04/2024 Depression Screening 08/12/2025 08/12/2024, 08/13/19 25 Disability Screening 08/12/2025 08/12/2024 Diabetes: Hemoglobin A1C 11/24/2025 025, 07/17/2023, 07/11/2022, Additional history exists Alcohol/Substance Use Screening 12/02/2025 12/02/2024 Tobacco Screening 01/01/2026 01/01/2025 Dental X-Ray: Bitewings 01/02/2026 01/02/20, 11/13/2023, 07/28/2022 Cervical Cancer Screening 11/16/2026 HPV/Cotest 11/16/2026 [...] Hepatitis B Vaccines Completed 06/05/2024, 01/28/2013, 11/25/2012 Influenza Vaccine Completed 01/02/2025, , 04/06/2016, Additional history exists HIB Vaccines Aged Out No longer eligi [...] Procedure Name Priority Date/Time Associated Diagnosis Comments PERIODIC ORAL EVALUATION - ESTABLISHED PATIENT Routine 01/01/2025 2:15 PM EDT PROPHYLAXIS - ADULT Routine 01/01/2025 2 :15 PM EDT Periodontal disease Stage 3 grade B molar/incisor periodontitis per AAP/EFP 2017 classification Dental calculus Gingival bleeding INTRAORAL - PERIAPICAL EACH ADDITIONAL RADIOGRAPHIC IMAGE Routine 01/01/2025 2:15 PM EDT Periodontal disease Stage 3 grade B molar/incisor periodontitis per AAP/EFP 2017 classification Dental calculus Missing teeth, acquired Tipped teeth Crowded teeth Localized gingival recession INTRAORAL - PERIAPICAL FIRST RADIOGRAPHIC IMAGE Routine 01/01/2025 2:15 PM EDT Periodontal disease Stage 3 grade B molar/incisor periodontitis per AAP/EFP 2017 classification Dental calculus Missing teeth, acquired Tipped teeth Crowded teeth Localized gingival recession BITEWINGS - 4 RADIOGRAPHIC IMAGES Routine 01/01/2025 2:15 PM EDT Periodontal disease Stage 3 grade B molar/incisor periodontitis per AAP/EFP 2017 classification Dental calculus Missing teeth, acquired Tipped teeth Crowded teeth Localized gingival recession XR HAND 3+ VIEWS LEFT Routine 12/02/2024 [...] PM EDT Screening examination for venereal disease HM COLONOSCOPY Routine 03/06/2024 9:11 AM EST BI MAMMOGRAM SCREENING TOMOSYNTHESIS BILATERAL Routine 08/09/2023 [...] PM EDT Narrative 12/02/2024 12:34 [place] [address] XRay Report Signed Patient: Lesley Barraza I MR#: [id number] : 1970 Acct:[id number] Age/Sex: 54 / F ADM Date: 12/02/24 Loc: HO.HHCX Attending Dr: Sukhdeep Paul MD Ordering Physician: Sukhdeep Paul MD Date of Service: 12/02/24 Procedure(s): XR hand LT min 3V Accession Number(s): [id number] cc: Sukhdeep Paul MD Reason for Exam: [...] 12/02/24 1231 DD/ 1223 TD/TT: 12/02/24 1224 Identification Printing Machine Setter: Procedure Note Donotuseinterpreter, Image - 12/02/[address] [address] XRay Report Signed Patient: Lesley Barraza IMR#: [id number] : 1970Acct:[id number] Age/Sex: 54 / FADM Date: 12/02/24 Loc: .HHCX Attending Dr: Sukhdeep Paul MD Ordering Physician: Sukhdeep Paul MD Date of Service: 12/02/24 Procedure(s): XR hand LT min 3V Accession Number(s): [id number] cc: Sukhdeep Paul MD Reason for Exam: [...] 12/02/24 1231 DD/ 1223 TD/TT: 12/02/24 1224 Identification Printing Machine Setter: Sukhdeep Paul MD IM XR PROCEDURES Edited Result - Final * (ABNORMAL) CBC auto differential (11/24/2024 8:28 AM EDT) White Blood Count 5.7 4.8 - 10.8 X10*3/uL [facility] Red Blood Count 5.09 4.20 - 5.50 X10*6/uL [facility] Hemoglobin 12.8 12.0 - 16.0 g/dl [facility] Hematocrit 40.2 37.0 - 47.0 % [facility] Mean Corpuscular Volume 79.0(L) 80.0 - 98.0 fL [facility] Mean Corpuscular Hemoglobin 25.1(L) 27.0 - 33.0 pg [facility] Mean Corpuscular HGB Conc 31.8 31.0 - 35.0 g/dl [facility] Red Cell Distribution Width 15.4 11.0 - 16.0 % [facility] Platelet Count 220 160 - 400 X10*3/uL [facility] Mean Platelet Volume 12.1 9.4 - 12.3 fL [facility] Neutrophils Percent Auto 54.8 45 - 73 % [facility] Imm Gran Pct Auto 0.4 0.0 - 0.4 % [facility] Lymphocytes Percent Auto 29.8 20 - 40 % [facility] Monocytes Percent Auto 10.6 2 - 11 % [facility] Eosinophils Percent Auto 3.9 0 - 4 % [facility] Basophils Percent Auto 0.5 0 - 2 % [facility] NRBC Pct Auto 0.0 0.0 - 0.2 /100WBC [facility] Neutrophils Absolute Auto 3.1 2.0 - 8.3 x10*3/uL [facility] Imm Gran Abs Auto 0.02 0.00 - 0.03 X10*3/uL [facility] Lymphocytes Absolute Auto 1.7 1.2 - 4.9 X10*3/uL [facility] Monocytes Absolute Auto 0.6 0.1 - 1.2 X10*3/uL [facility] Eosinophils Absolute Auto 0.2 0.0 - 0.4 X10*3/uL [facility] Basophils Absolute Auto 0.0 0.0 - 0.2 X10*3/uL [facility] NRBC Abs Auto 0.000 0.0 - 0.012 X10*3/uL [facility] Blood Venous blood specimen / Unknown 11/24/2024 8:28 AM EDT 11/24/2024 11:16 AM EDT Sukhdeep Paul MD LAB BLOOD ORDERABLES Final Resul t Performing Organization Address [facility] de Phone Number [facility] [address] [place] [phone] * Hemoglobin A1c (11/24/2024 8:28 AM EDT) Hemoglobin A1c 6.0 <6.0 % [facility] Comment:Hemoglobin A1C Refer ence Range Adults: 4.8 - 6.0 % Non diabetic: < 6.0 % Goal: < 7.0 %Additional Action Suggested: > 8.0 %Note: Hemoglobin A1c results are invalid for patients with abnormal amounts of HbF. Blood transfusions may impact the HbA1c concentration in the patient sample. Estimated Average Glucose 126 mg/dL [facility] Comment:eAG = Estimated ave rage glucose which is %A1C expressed asaverage glucose, using the formula of the F8M-IzwrmpcEqfsftv Glucose study (ADAG), Diabetes Care, Vol.31,#8,Oct. 2007 Blood Venous blood specimen / Unknown 11/24/2024 8:28 AM EDT 11/24/2024 11:16 AM EDT us Sukhdeep Paul MD LAB BLOOD ORDERABLES Final Resul t Performing Organization Address [facility] Co de Phone Number [facility] [address] [place] [phone] * (ABNORMAL) Lipid Panel, Standard (11/24/2024 8:28 AM EDT) Triglycerides 331(H) <150 mg/dL [facility] Comment:Desirable Triglyceri de: less than 150 mg/dLBorderline High Triglyceride 150-199 mg/dLHigh Triglyceride: 200-499 mg/dLVery High Triglyceride: greater than or equal to 5OO mg/dL Cholesterol 243(H) <200 mg/dL [facility] Comment:Desirable Cholestero l: less than 200 mg/dLBorderline High Cholesterol: 200-239 mg/dLHigh Cholesterol: greater than 239 mg/dL LDL Cholesterol Calculated 124(H) <100 mg/dL [facility] Comment:Desirable LDL: less than 100 mg/dLNear Optimal/Above Optimal LDL: 110- 129 mg/dLBorderline High LDL: 130-159 mg/dLHigh LDL: 160-189 mg/dLVery High LDL: greater than or equal to 190 mg/dL HDL Cholesterol 53 >40 mg/dL [facility] Comment:Desirable HDL: great er than 40 mg/dL Note: This HDL assay may give artificially low results in patients with liver disease. Blood Venous blood specimen / Unknown 11/24/2024 8:28 AM EDT 11/24/2024 11:16 AM EDT us Sukhdeep Name LAB BLOOD ORDERABLES Final Resul t [facility] [address] [place] [phone] * (ABNORMAL) Comprehensive Metabolic Panel (11/24/2024 8:28 AM EDT) Sodium 142 135 - 145 mmol/L [facility] Potassium 4.0 3.3 - 5.1 mmol/L [facility] Chloride 108 96 - 108 mmol/L [facility] Carbon Dioxide 27 22 - 29 mmol/L [facility] Anion Gap 11(L) 12 - 20 [facility] Urea Nitrogen (BUN) 14 9 - 16 mg/dL [facility] Creatinine, Serum 0.64 0.5 - 1.4 mg/dL [facility] Estimated Glomerular Filt Rate >60 [facility] Comment:Chronic Kidney Disea se: Estimated GFR < 60 mL/min/1.54g9Mawttn Kidney Disease: Estimated GFR < 15 mL/min/1.73m2 Glucose 98 60 - 115 mg/dL [facility] Calcium 8.9 8.4 - 10.2 mg/dL [facility] Bilirubin, Total 0.3 0.0 - 1.0 mg/dL [facility] Aspartate Amino Transferase 25 5 - 31 U/L [facility] Alanine Aminotransferase 23 0 - 31 U/L [facility] Total Protein 6.8 6.5 - 8.0 g/dL [facility] Albumin Level 4.0 3.5 - 5.0 g/dL [facility] Alkaline Phosphatase 86 39 - 117 U/L [facility] Blood Venous blood specimen / Unknown 11/24/2024 8:28 AM EDT 11/24/2024 11:16 AM EDT Sukhdeep Paul MD LAB BLOOD ORDERABLES Final Resul t Performing Organization Address [facility]/ZIP Co de Phone Number [facility] [address] [place] [phone] * Hepatitis C Antibody with Reflex to HCV, RNA, Quantitative, Real-Time PCR (06/03/2024 1:53 PM EDT) Hepatitis C Antibody Nonreactive Nonreactive [facility] Comment:Antibodies to HCV no t detected; does not exclude early acuteHCV infection. Blood Venous blood specimen / Unknown 06/03/2024 1:53 PM EDT 06/03/2024 4:18 PM EDT Laure TIPTON LAB BLOOD ORDERABLES Christy l Result Performing Organization Address City/[facility]/ZIP Co de Phone Number [facility] [address] [place] [phone] * HIV-1/2 Antigen and Antibodies, Fourth Generation, with Reflexes (06/03/2024 1:53 PM EDT) HIV AB/AG Nonreactive Nonreactive [facility] Comment:HIV-1 p24 Ag and/or HIV-1/HIV-2 Ab not detected.A test result that is nonreactive does not exclude thepossibility of exposure to or infection with HIV-1 and/orHIV-2. Nonreactive results in this assay for individualswith prior exposure to HIV-1 and/or HIV-2 may be due toantigen and antibody levels that are below the limit ofdetection of this assay.The [employer] HIV Ag/Ab Combo assay result andsupplemental assay results should be interpreted inconjunction with the patient's clinical presentation,history and other laboratory results. If the results areinconsistent with clinical evidence, additional testing issuggested to confirm the result. Blood Venous blood specimen / Unknown 06/03/2024 1:53 PM EDT 06/03/2024 4:18 PM EDT Laure Gregory CN LAB BLOOD ORDERABLES Christy l Result [facility] [address] [place] [phone] * Hm Colonoscopy (03/06/2024 9:11 AM EST) Colonoscopy Normal Normal 03/06/2024 9:11 AM EST Sukhdeep Paul MD HEALTH MAINTENANCE Final Result * BI Mammogram Screening Tomosynthesis Bilateral (08/09/2023 4:03 PM EDT) Anatomical Region Laterality Modality Breast Bilateral Mammography 08/09/2023 4:03 PM EDT Narrative 08/31/2023 6:12 AM EDT [address] [place] [address] Mammography Report Signed Patient: Lesley Barraza I MR#: [id number] : 1970 Acct:[id number] Age/Sex: 53 / F ADM Date: 08/09/23 Loc: HO.MAMMO Attending Dr: Sukhdeep Paul MD Ordering Physician: Sukhdeep Paul MD Results: 1Negative Date of Service: 08/09/23 Follow Up: 1 Year From Orig inal Mammogram Procedure(s): MM tomosynthesis screening BI Accession Number(s): [id number] cc: Sukhdeep Paul MD EXAMINATION: MM SCREENING [...] in OV> 08/31/23 0609 DD/ 1603 TD/TT: Identification Printing Machine Setter: Procedure Note Donotuseinterpreter, Image - 08/31/2023 [facility] [address] [place], [place] [address] Mammography Report Signed Patient: Lesley Barraza IMR#: [id number] : 1970Acct:[id number] Age/Sex: 53 / FADM Date: 08/09/23 Loc: NICO Attending Dr: Sukhdeep Paul MD Ordering Physician: Sukhdeep Paul MDResults: 1Negative Date of Service: 08/09/23Follow Up: 1 Year From Orig inal Mammogram Procedure(s): MM tomosynthesis screening BI Accession Number(s): [id number] cc: Sukhdeep Paul MD EXAMINATION: MM SCREENING [...] in OV> 08/31/23 0609 DD/ 1603 TD/TT: Identification Printing Machine Setter: [facility] Name IM BI PROCEDURES Edited Result - Final * THINPREP TIS PAP AND HPV mRNA E6/E7 WITH REFLEX TO HPV 16,18/45 (11/16/2021 10:40 AM EDT) Clinical Information: None given [facility] COMMENT SEE COMMENT [facility] ON [...] has been evaluated with computer assisted technology. [facility] Cytotechnologis t: SEE COMMENT [facility] Comment: GSG, CT(ASCP) CT screening location: [address] [address] HPV nRNA E6/E7 Not Detected Not Detected [facility] Comment: Methodology: Flexible Nanny-Mediated Amplification This assay detects E6/E7 viral messenger RNA (mRNA) from 14 high-risk HPV types (16,18,31,33,35,39,45,51,52,56,58,59,66,68). Cervical sources are required for HPV testing. If a vaginal source from a patient who has had a total hysterectomy with removal of cervix was submitted, please contact the testing laboratory for alternative testing options. For additional information, please refer to http://education.Axeda/faq/CMM595j4 (This link if provided for information/ educational [...] 11/16/2021 10:4 0 AM EDT us Laure TIPTON LAB PATHOLOGY ORDERABLES Final Result Performing Organization Address City/State/[facility] Co de Phone Number [facility] [address] from Last 3 Months or Most Recently Relevant to Health Maintenance Insurance [facility] DENTAL - HSN PARTIAL (MEDICAID) DENTAL - [employer]IG[employer] DENTAL PPO Care Teams School Speech Therapist Relationship Specialty Start Date End Date Name, MD Sukhdeep [address] [place] [phone] PCP - General Internal Medicine 06/02/22
--- OUTSIDE RECORDS SUMMARY | 2025-01-24 07:26 | XMS_ITS | Encounter Summary ---
Author Organization [employer] Address [address] [facility] 7t [place] [address] Care Team Providers Care Blend Plant Operator Name Role Phone Name, Sukhdeep AUSTIN Primary Care Provider [phone] Encounter Details Date Type Department Care Team (Late Contact Info) Description 08/02/2022 Abstract [facility] ADULT DENTAL [address] [place], [place] [phone] KalaniCainCordelia [address] [place] [address] Social History Tobacco Use Types Packs/Day Years [...] Department Care Team (Late Contact Info) Description 03/17/2025 2:00 PM EST Nutrition [facility] DIABETES/NUTRITION [address] [place] [address] Angela David, GARRICK [address] [place] [address] 05/07/2025 2:15 PM EST Office Visit [facility] ADULT DENTAL [address] [place] [address] Cain Uriartearis [address] [place] [address] documented as of this encounter Visit Diagnoses Not on filedocumented in this encounter Additional Health Concerns Assessment Noted Time PHQ-9 Depression Total Score: 0 07/12/19 23 9:22 AM EDT documented as of this encounter Care Teams Blend Plant Operator Relationship Specialty Start Date End Date Name, MD Sukhdeep [address] [place] [address] PCP - General Internal Medicine 06/02/22 documented as of this encounter
--- OUTSIDE RECORDS SUMMARY | 2025-01-24 07:26 | XMS_ITS | Encounter Summary ---
Author Organization [employer] Address [address] [facility] 7t [place] [address] Care Team Providers Care Vocational Director Name Role Phone NameSukhdeep MD Primary Care Provider Reason for Visit * Reason Onset Date Comments Medication Question 06/05/2024 Encounter Details Date Type Department Care Team ([facility] st Contact Info) Description 06/05/2024 Telephone [facility] MEDICINE [address] [place], [place] [phone] Name, MD Sukhdeep [address] [place], [place] [phone] Medication Question Social History Tobacco Use Types [...] the past 12 months, has t he [employer], gas, oil or water company threatened to [...] verbal consent from GIANNI Gregory to call [facility] pharmacy and request metro gel Rx from 06/04/24 to be reactivated and to cancel PO Kristie Rodriguez in [facility] pharmacy verbalized understanding and will fill Rx. [...] would prefer the Gel. Contact pt at [phone] documented in this encounter Plan of Treatment Upcoming Encounters Date Type Department Care Team (Late st Contact Info) Description 03/17/2025 2:00 PM EST Nutrition [facility] DIABETES/NUTRITION [address] [place] [address] Angela David, RD [address] [place] [address] 05/07/2025 2:15 PM EST Office Visit [facility] ADULT DENTAL [address] [place] [address] Kalani, Cordelia [address] [place] [address] documented as of this encounter Visit Diagnoses Not on filedocumented in this encounter Additional Health Concerns Assessment Noted Time PHQ-9 Depression Total Score: 0 07/30/19 24 1:52 PM EDT documented as of this encounter Care Teams Vocational Director Relationship Specialty Start Date End Date Name, MD Sukhdeep [address] [place] [address] PCP - General Internal Medicine 06/02/22 documented as of this encounter
--- OUTSIDE RECORDS SUMMARY | 2025-01-24 07:26 | XMS_ITS | Encounter Summary ---
Author Organization [email or web address] Address [address] [facility] [address] [place] [address] Care Team Providers Care Motion Picture Equipment Supervisor Name Role Phone Name, Sukhdeep AUST[place] Primary Care Provider [phone] Encounter Details Date Type Department Care Team (Late st Contact Info) Description 09/05/2022 Abstract [facility] ADULT DENTAL [address] [place], [place] [phone] Kalani, Cordelia [address] [place] [address] Social History Tobacco Use Types Packs/Day Years [...] Info) Description 03/17/2025 2:00 PM EST Nutrition [facility] DIABETES/NUTRITION [address] [place], [place] [phone] Angela David RD [address] [place], [place] [phone] 05/07/2025 2:15 PM EST Office Visit [facility] ADULT DENTAL [address] [place] [address] Cain Uriartearis [address] [place] [address] documented as of this encounter Visit Diagnoses Not on filedocumented in this encounter Additional Health Concerns Assessment Noted Time PHQ-9 Depression Total Score: 0 07/12/19 9:22 AM EDT documented as of this encounter Care Teams Motion Picture Equipment Supervisor Relationship Specialty Start Date End Date Name, MD Sukhdeep [address] [place] [address] PCP - General Internal Medicine 06/02/22 documented as of this encounter
--- OUTSIDE RECORDS SUMMARY | 2025-01-24 07:26 | XMS_ITS | Encounter Summary ---
Author Organization [facility] Address [address] [facility] [address] [place] [address] Care Team Providers Care Tawer Name Role Phone Monica Chavez Primary Care Provider [phone] Sukhdeep Paul MD Primary Care Provider [phone] Encounter Details Date Type Department Care Team (Latest Contact Info) Description 04/05/2021 Abstract [facility] CONVERSIONS Dental, Provider, DDS Social [...] Info) Description 03/17/2025 2:00 PM EST Nutrition [facility] DIABETES/NUTRITION [address] [place] [address] Angela David, RD [address] [place] [address] 05/07/2025 2:15 PM EST Office Visit [facility] ADULT DENTAL [address] [place] [address] Kalani, Cordelia [address] [place] [address] documented as of this encounter Visit Diagnoses Not on filedocumented in this encounter Care Teams Tawer Relationship Specialty Start Date End Date Monica Chavez FNP [address] [place] [address] PCP - General Family Medicine 11/08/21 06/01/22 Name, MD Sukhdeep [address] [place] [address] PCP - General Internal Medicine 06/02/22 documented as of this encounter
--- OUTSIDE RECORDS SUMMARY | 2025-01-24 07:26 | XMS_ITS | Encounter Summary ---
Author Organization [employer] Address [address] [facility] 7[address] [place] [address] Care Team Providers Care Hospitalist Medical Director Name Role Phone Name, Sukhdeep AUSTIN Primary Care Provider [phone] Reason for Visit * Reason Comments Med Refill Encounter Details Date Type Department Care Team ([facility] st Contact Info) Description 05/28/2023 Refill [facility] WALK-IN CENTER [address] [place] [address] [phone] Grabiel Smith MD [address] [place], [place] [phone] Social History Tobacco Use Types Packs/Day Years [...] Info) Description 03/17/2025 2:00 PM EST Nutrition [facility] DIABETES/NUTRITION [address] [place] [address] Angela David, RD [address] [place] [address] 05/07/2025 2:15 PM EST Office Visit [facility] ADULT DENTAL [address] [place] [address] Kalani, Cordelia [address] [place] [address] documented as of this encounter Visit Diagnoses Not on filedocumented in this encounter Additional Health Concerns Assessment Noted Time PHQ-9 Depression Total Score: 0 07/12/19 23 9:22 AM EDT documented as of this encounter Care Teams Hospitalist Medical Director Relationship Specialty Start Date End Date Name, MD Sukhdeep [address] [place] [address] PCP - General Internal Medicine 06/02/22 documented as of this encounter
--- OUTSIDE RECORDS SUMMARY | 2025-01-24 07:26 | XMS_ITS | Encounter Summary ---
Author Organization [facility] Address [address] [facility] [address] [place] [address] Care Team Providers Care Information Technology Security Analyst Name Role Phone Monica Chavez Primary Care Provider Sukhdeep Paul MD Primary Care Provider [phone] Encounter Details Date Type Department Care Team (Latest Contact Info) Description 12/11/2018 Abstract [facility] CONVERSIONS Dental, Provider, DDS Social [...] Care Team ( st Contact Info) Description 03/17/2025 2:00 PM EST Nutrition [facility] DIABETES/NUTRITION [address] [place] [address] Angela David, RD [address] [place] [address] 05/07/2025 2:15 PM EST Office Visit [facility] ADULT DENTAL [address] [place] [address] Kalani, Codrelia [address] [place] [address] documented as of this encounter Visit Diagnoses Not on filedocumented in this encounter Care Teams Information Technology Security Analyst Relationship Specialty Start Date End Date Monica Chavez FNP [address] [place] [address] PCP - General Family Medicine 11/08/21 06/01/22 Name, MD Sukhdeep [address] [place] [address] PCP - General Internal Medicine 06/02/22 documented as of this encounter
== END 2025-01-24 07:25 | disposition home or self-care (01) ==
LOC: HO.MAMMO 07:24
PROVIDERS: PCP Internal Medicine Geriatric Medicine; Visit Provider Internal Medicine Geriatric Medicine
DX: Z12.31 Encounter for screening mammogram for malignant neoplasm of breast (principal)
CPT/HCPCS: 77063; 77067

== ENCOUNTER → 2025-01-24 07:30 | Outpatient (BNV) | payer OTHER, SELFPAY | PROVIDERS: PCP Internal Medicine Geriatric Medicine; Visit Provider Internal Medicine | DX: Z12.31 Encounter for screening mammogram for malignant neoplasm of breast (principal) | CPT/HCPCS: 77063; 77067 ==

== ENCOUNTER 2025-02-02 09:40 | Outpatient (AMB) | payer OTHER, SELFPAY ==
[2025-02-02 09:48] VITALS: BMI 28.5
--- NOTE | 2025-02-02 09:48 | A.OFFVIS_ITS ---
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 Patient reports that she has had locking, catching and swelling of the left middle finger. She is unable to identify how long this has been going on for, she thinks it is a matter of months, but it has recently become worse. 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 She reports that she gets worried when the finger locks as she thinks it will not open again Patient has a history of Prediabetes. Last A1C done 11/24/24 - 6.0%. 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 Patient reports that she has had locking, catching and swelling of the left middle finger. She is unable to identify how long this has been going on for, she thinks it is a matter of months, but it has recently become worse. 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 She reports that she gets worried when the finger locks as she thinks it will not open again. Patient states that the locking and catching does not occur every time she closes her fist, but is becoming more frequent and this is becoming worrisome. Patient has a history of Prediabetes. Last A1C done 11/24/24 - 6.0%. Patient does not take her blood sugars at home. 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 Neuro: Normal sensation of the tips of all digits of the left hand at this time Vascular: Cap refill brisk Pain: Mild pain associated with locking and catching of the left middle finger Tenderness to palpation of the A1 willie of the left middle finger ROM: There is a visible and palpable locking and catching of the left middle finger in a flexed position Patient is able to flex and extend all other digits of the left hand fully and without difficulty Skin: No lacerations or abrasions. General: No ecchymosis, erythema, or evidence of infection. Psych: Appears grossly normal Affect normal Attitude cooperative Office Procedures AMB Tendon Injection Tendon Injection [id number] Tendon Sheath Injection All charges added?: Procedure code (CPT) selection complete Assessment & Plan Assessment & Plan (1) Trigger finger, left middle finger: Code(s): M65.332 - Trigger finger, left middle finger Category: Medical Plan 1. Left middle finger trigger finger Patient is educated about this condition Patient is educated about the treatment options available Patient would like to proceed with steroid injection at this time The risks and benefits of a steroid injection including but not limited to risk of damage to blood vessels, nerves, tendons, infection, skin bleaching, failure to improve symptoms, increased pain, and possible need for further injections or other intervention were discussed with the patient and the patient wishes to proceed with the steroid injection. Once consent was obtained, I sterilely prepped the area over the A1 willie of th e flexor tendon sheath of the left middle finger. I then injected the flexor tendon sheath with a combination of 1 mL of dexamethasone (4mg/ml), and 1% lidocaine. The patient tolerated the procedure well with no complications. If the patient continues to have locking and catching 4-6 weeks following this injection, they may call to schedule appointment to discuss alternative treatment options Follow-up prn Coding Level of Care Code New Pt Level 3 (25246) Diagnoses Trigger finger, left middle finger M65.332 CPT Codes Tendon Injection - Tendon Injection 1: [id number] Tendon Sheath Injection ([id number])
== END 2025-02-02 10:17 | disposition home or self-care (01) ==
LOC: HO.HOS 09:41
PROVIDERS: PCP Internal Medicine Geriatric Medicine
DX: M65.332 Trigger finger, left middle finger (principal)
CPT/HCPCS: 20550; 99203

== ENCOUNTER → 2025-02-02 09:40 | Outpatient (BNVA) | payer OTHER, SELFPAY | PROVIDERS: PCP Internal Medicine Geriatric Medicine | DX: M65.332 Trigger finger, left middle finger (principal) | CPT/HCPCS: 20550; 99202; J1100; J2003 ==